=== PATIENT | female | born 1970 | race Caucasian/White ===

== ENCOUNTER 2019-07-15 05:51 | Day surgery (SDC) | payer OTHER, SELFPAY | END 2019-07-15 10:51 | disposition home or self-care (01) | PROVIDERS: Family Provider Nurse Practitioner Family; Visit Provider Podiatrist Foot & Ankle Surgery | DX: S86.011A Strain of right Achilles tendon, initial encounter (principal); X58.XXXA Exposure to other specified factors, initial encounter; I10 Essential (primary) hypertension; E66.01 Morbid (severe) obesity due to excess calories; Z68.41 Body mass index [BMI] 40.0-44.9, adult; K21.9 Gastro-esophageal reflux disease without esophagitis; M19.90 Unspecified osteoarthritis, unspecified site; M79.7 Fibromyalgia; Z82.49 Family history of ischemic heart disease and other diseases of the circulatory system; Z83.3 Family history of diabetes mellitus; F17.210 Nicotine dependence, cigarettes, uncomplicated; E04.9 Nontoxic goiter, unspecified; E55.9 Vitamin D deficiency, unspecified | CPT/HCPCS: 27654; C1713 ×4; J0690; J1100; J2001; J2250; J2405; J2704 ×2; J2795; J3010 ×2; J3490 ×2 ==

== ENCOUNTER → 2019-07-18 | Outpatient (CLI) | payer OTHER, SELFPAY | PROVIDERS: Family Provider Nurse Practitioner Family; Visit Provider Podiatrist Foot & Ankle Surgery | DX: Z98.890 Other specified postprocedural states (principal) | CPT/HCPCS: L4361 ==

== ENCOUNTER → 2019-09-12 13:59 | Outpatient (BNVA) | payer SELFPAY | PROVIDERS: Family Provider Nurse Practitioner Family; PCP Nurse Practitioner Family; Visit Provider Podiatrist Foot & Ankle Surgery | DX: Z48.89 Encounter for other specified surgical aftercare (principal); M79.671 Pain in right foot; M77.31 Calcaneal spur, right foot; S86.001A Unspecified injury of right Achilles tendon, initial encounter; X58.XXXA Exposure to other specified factors, initial encounter | CPT/HCPCS: 73610; 73630 ==

== ENCOUNTER → 2019-09-27 14:28 | Outpatient (BNVA) | payer OTHER, SELFPAY | PROVIDERS: Family Provider Nurse Practitioner Family; PCP Nurse Practitioner Family; Visit Provider Podiatrist Foot & Ankle Surgery | DX: Z48.89 Encounter for other specified surgical aftercare (principal); M79.671 Pain in right foot | CPT/HCPCS: 73650 ==

== ENCOUNTER → 2019-10-03 08:45 | Outpatient (BNVA) | payer OTHER, SELFPAY | PROVIDERS: Family Provider Nurse Practitioner Family; PCP Nurse Practitioner Family; Visit Provider Podiatrist Foot & Ankle Surgery | DX: Z48.89 Encounter for other specified surgical aftercare (principal); M79.671 Pain in right foot; Z98.890 Other specified postprocedural states; T81.31XD Disruption of external operation (surgical) wound, not elsewhere classified, subsequent encounter; L97.412 Non-pressure chronic ulcer of right heel and midfoot with fat layer exposed | CPT/HCPCS: 87070; 87075; 87077; 87205 ==

== ENCOUNTER → 2019-10-10 12:08 | Outpatient (BNVA) | payer SELFPAY | PROVIDERS: Family Provider Nurse Practitioner Family; PCP Nurse Practitioner Family; Visit Provider Podiatrist Foot & Ankle Surgery | DX: T81.31XD Disruption of external operation (surgical) wound, not elsewhere classified, subsequent encounter (principal); Y83.8 Other surgical procedures as the cause of abnormal reaction of the patient, or of later complication, without mention of misadventure at the time of the procedure | CPT/HCPCS: 80048; 85007; 85027; 85651; 86140 ==

== ENCOUNTER 2019-11-02 06:00 | Outpatient (RCR) | payer OTHER, SELFPAY | END 2019-11-17 23:59 | disposition home or self-care (01) | LOC: WPT 06:00 | PROVIDERS: Absent Provider Podiatrist Foot & Ankle Surgery; Family Provider Nurse Practitioner Family; PCP Nurse Practitioner Family; Visit Provider Podiatrist Foot & Ankle Surgery | DX: M25.571 Pain in right ankle and joints of right foot (principal); Z47.89 Encounter for other orthopedic aftercare; Z98.890 Other specified postprocedural states | CPT/HCPCS: 97110; 97140; 97161 ==

== ENCOUNTER 2019-11-18 06:00 | Outpatient (RCR) | payer OTHER, SELFPAY | END 2019-12-18 23:59 | disposition home or self-care (01) | LOC: WPT 06:00 | PROVIDERS: Absent Provider Podiatrist Foot & Ankle Surgery; PCP Nurse Practitioner Family; Visit Provider Podiatrist Foot & Ankle Surgery | DX: Z47.89 Encounter for other orthopedic aftercare (principal) | CPT/HCPCS: 97110; 97530 ==

== ENCOUNTER → 2019-12-01 11:41 | Outpatient (BNVA) | payer OTHER, SELFPAY | PROVIDERS: PCP Nurse Practitioner Family; Visit Provider Nurse Practitioner Family | DX: R53.83 Other fatigue (principal); E04.1 Nontoxic single thyroid nodule; E78.2 Mixed hyperlipidemia; E55.9 Vitamin D deficiency, unspecified; G25.81 Restless legs syndrome; Z79.899 Other long term (current) drug therapy; M54.5 Low back pain; M79.605 Pain in left leg; M25.552 Pain in left hip | CPT/HCPCS: 80061; 81001; 82306; 83036; 83540; 84439; 84443; 84481; 85025 ==

== ENCOUNTER → 2019-12-06 09:16 | Outpatient (BNVA) | payer OTHER, SELFPAY | PROVIDERS: PCP Nurse Practitioner Family; Visit Provider Nurse Practitioner Family | DX: D64.9 Anemia, unspecified (principal); E03.9 Hypothyroidism, unspecified; D51.9 Vitamin B12 deficiency anemia, unspecified; R94.4 Abnormal results of kidney function studies; R73.09 Other abnormal glucose; E78.2 Mixed hyperlipidemia; M54.5 Low back pain; M79.605 Pain in left leg | CPT/HCPCS: 36415; 82607; 83921 ==

== ENCOUNTER → 2019-12-08 08:58 | Outpatient (BNVA) | payer OTHER, SELFPAY | PROVIDERS: PCP Nurse Practitioner Family; Visit Provider Nurse Practitioner Family | DX: M54.5 Low back pain (principal); M79.605 Pain in left leg; M25.552 Pain in left hip | CPT/HCPCS: 72114; 73502 ==

== ENCOUNTER → 2020-01-02 10:00 | Outpatient (BNVA) | payer OTHER, SELFPAY | PROVIDERS: PCP Nurse Practitioner Family; Visit Provider Nurse Practitioner Family | DX: J22 Unspecified acute lower respiratory infection (principal) | CPT/HCPCS: 87635 ==

== ENCOUNTER → 2020-02-13 15:05 | Outpatient (BNVA) | payer OTHER, SELFPAY | PROVIDERS: PCP Nurse Practitioner Family; Visit Provider Nurse Practitioner Family | DX: D64.9 Anemia, unspecified (principal); J22 Unspecified acute lower respiratory infection; J40 Bronchitis, not specified as acute or chronic; J32.9 Chronic sinusitis, unspecified; R73.09 Other abnormal glucose; E55.9 Vitamin D deficiency, unspecified; D51.9 Vitamin B12 deficiency anemia, unspecified; E04.1 Nontoxic single thyroid nodule; G25.81 Restless legs syndrome | CPT/HCPCS: 80053; 82306; 82728; 83036; 84443; 85025 ==

== ENCOUNTER → 2020-02-17 13:45 | Outpatient (BNVA) | payer OTHER, SELFPAY | PROVIDERS: PCP Nurse Practitioner Family; Visit Provider Nurse Practitioner Family | DX: J22 Unspecified acute lower respiratory infection (principal) | CPT/HCPCS: 71046 ==

== ENCOUNTER 2020-02-27 07:49 | Outpatient (CLI) | payer OTHER, SELFPAY ==
--- NOTE | 2020-02-27 11:00 | US_ITS ---
WS: [id number] ULTRASOUND THYROID TECHNIQUE: Ultrasound of the thyroid. CLINICAL INFORMATION: US Nodules - hypothyroid COMPARISON: FINDINGS: Thyroid: Heterogeneous thyroid echotexture bilaterally. Right thyroid lobe: 3.5 cm x 1.8 cm x 1.5 cm 2-3 hypoechoic right-sided nodules measuring 7-10 mm unchanged. Left thyroid lobe: 3.7 cm x 1.2 cm x 1.2 cm. No visualized left-sided nodules today. Isthmus: 0.2 mm. Cervical lymphadenopathy: None. US/US thyroid [id number] IMPRESSION: 1. Two-three hypoechoic right-sided nodules measuring 7-1 mm unchanged. Recomm end 12 month follow-up. 2. No visualized left-sided nodules today
== END 2020-02-27 07:50 | disposition home or self-care (01) ==
LOC: RAD 07:52
PROVIDERS: PCP Nurse Practitioner Family; Visit Provider Nurse Practitioner Family
DX: E03.9 Hypothyroidism, unspecified (principal); E04.2 Nontoxic multinodular goiter
CPT/HCPCS: 76536

== ENCOUNTER 2020-03-14 12:52 | Outpatient (CLI) | payer OTHER, SELFPAY | END 2020-03-14 12:53 | disposition home or self-care (01) | LOC: SPT 12:53 | PROVIDERS: PCP Nurse Practitioner Family; Visit Provider Podiatrist Foot & Ankle Surgery | DX: S86.091D Other specified injury of right Achilles tendon, subsequent encounter (principal); X58.XXXD Exposure to other specified factors, subsequent encounter; M92.61 Juvenile osteochondrosis of tarsus, right ankle; M67.88 Other specified disorders of synovium and tendon, other site | CPT/HCPCS: L3030 ==

== ENCOUNTER 2020-05-16 11:32 | Outpatient (CLI) | payer OTHER, SELFPAY | END 2020-05-16 11:33 | disposition home or self-care (01) | LOC: SPT 11:33 | PROVIDERS: PCP Nurse Practitioner Family; Visit Provider Podiatrist Foot & Ankle Surgery | DX: Z46.89 Encounter for fitting and adjustment of other specified devices (principal); M92.61 Juvenile osteochondrosis of tarsus, right ankle; M67.88 Other specified disorders of synovium and tendon, other site; L97.412 Non-pressure chronic ulcer of right heel and midfoot with fat layer exposed | CPT/HCPCS: 97760; L4397 ==

== ENCOUNTER → 2020-05-31 10:55 | Outpatient (BNVA) | payer OTHER, SELFPAY | PROVIDERS: PCP Nurse Practitioner Family; Visit Provider Nurse Practitioner Family | DX: S86.912A Strain of unspecified muscle(s) and tendon(s) at lower leg level, left leg, initial encounter (principal); W19.XXXA Unspecified fall, initial encounter; Y92.009 Unspecified place in unspecified non-institutional (private) residence as the place of occurrence of the external cause; B37.2 Candidiasis of skin and nail | CPT/HCPCS: 73590 ==

== ENCOUNTER → 2020-06-27 13:01 | Outpatient (BNVA) | payer OTHER, SELFPAY | PROVIDERS: PCP Nurse Practitioner Family; Visit Provider Podiatrist Foot & Ankle Surgery | DX: M79.672 Pain in left foot (principal) | CPT/HCPCS: 73620; 73630 ==

== ENCOUNTER → 2020-08-16 09:54 | Outpatient (BNVA) | payer OTHER, SELFPAY | PROVIDERS: PCP Nurse Practitioner Family; Visit Provider Internal Medicine | DX: L40.4 Guttate psoriasis (principal); Z11.1 Encounter for screening for respiratory tuberculosis; Z11.59 Encounter for screening for other viral diseases; Z79.899 Other long term (current) drug therapy; M51.36 Other intervertebral disc degeneration, lumbar region; F17.210 Nicotine dependence, cigarettes, uncomplicated | CPT/HCPCS: 99204 ==

== ENCOUNTER 2020-08-16 11:12 | Outpatient (CLI) | payer OTHER, SELFPAY ==
--- NOTE | 2020-08-16 11:22 | XR_ITS ---
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 Findings: No fractures, soft tissue swelling, or unusual calcifications are noted. The hand shows normal bony alignment. There is no irregularity of the bony architecture. XR/XR hand LT 2V [id number] IMPRESSION: Normal left hand.
--- NOTE | 2020-08-16 11:22 | XR_ITS ---
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 The hand shows normal bony alignment. There is no irregularity of the bony architecture. XR/XR hand RT 2V [id number] IMPRESSION: Normal right hand.
--- NOTE | 2020-08-16 11:22 | XR_ITS ---
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 Interbody fusion from L2 to L5 which appears to be in satisfactory alignment. Posterior rods and pedi fabián screws are intact. Spacers at the L2-3 and L4-5 disc levels. No sign of the hardware failure or m alposition. No acute fracture. Minimal levoscoliosis of the lumbar spine. Facet DJD at all levels. Mi nimal spondylosis. Mild degenerative anterolisthesis of L4 on L5 unchanged. XR/XR lumbar spine 2-3V* [id number] IMPRESSION: 1. Intact interbody fusion in satisfactory alignment. 2. Degenerative changes as detailed above. No acute bony injury.
--- NOTE | 2020-08-16 11:22 | XR_ITS ---
WS: [id number] Exam: XR sacroiliac jts m 3V [id number] Date/Time of Exam: 08/16/2020 11:22 AM Reason For Exam: L40.9 - Psoriasis, unspecified No fracture or dislocation. Moderate DJD of the SI joints. The SI joints are open. Hardware noted in the lower lumbar spine. XR/XR sacroiliac jts m 3V [id number] IMPRESSION: 1. Moderate DJD of the SI joints. No fracture or other significant finding.
[2020-08-16 13:08] LABS: Basophils % 0.4 %; Eosinophils # 0.3 10^3/uL (0.0-0.8); Eosinophils % 3.5 %; Hematocrit 42.6 % (37.0-47.0); Hemoglobin 13.4 g/dL (11.5-15.3); Lymphocytes # 1.9 10^3/uL (0.8-4.8); Lymphocytes % 20.9 %; Mean Corpuscular HGB Conc 31.5 g/dL (30.0-36.0); Mean Corpuscular Hemoglobin 32.2 pg (28.0-34.0); Mean Corpuscular Volume 102.4 fL (81-99); Mean Platelet Volume 11.4 fL (7.4-10.4); Monocytes # 0.5 10^3/uL (0.2-0.9); Monocytes % 5.5 %; Neutrophils # 6.37 10^3/uL (1.8-7.7); Neutrophils % 69.5 %; Nucleated Red Blood Cells % 0 %; Platelet Count 210 10^3/cmm (130-400); Red Blood Count 4.16 10^6/uL (4.1-5.3); Red Cell Distribution Width 13.7 % (12.1-15.1); White Blood Count 9.2 10^3/uL (4.0-10.0)
[2020-08-16 13:22] LABS: Alanine Aminotransferase 29 U/L (0-33); Albumin Level 3.9 g/dL (3.5-5.2); Alkaline Phosphatase 65 IU/L (35-105); Anion Gap 12.1 (5-19); Aspartate Amino Transferase 26 U/L (0-32); Blood Urea Nitrogen 13 mg/dL (6-20); Calcium 9.8 mg/dL (8.5-10.5); Carbon Dioxide 31 mmol/L (22-29); Chloride 103 mmol/L (98-107); Globulin 3.5 g/dL (1.3-4.6); Glomerular Filtration Rate 76.2 mL/min (90-130); Glucose 82 mg/dL (65-115); Osmolality Calculated 293 mOsm/kg (285-295); Potassium 4.1 mmol/L (3.5-5.1); Sodium 142 mmol/L (136-145); Total Bilirubin 0.3 mg/dL (0.15-1.2); Total Protein 7.4 g/dL (6.6-8.7)
[2020-08-16 13:53] LABS: Erythrocyte Sedimentation Rate 45 mm/hr (0-15)
[2020-08-16 13:59] LABS: Hepatitis B Core AB, Total Non-Reactive (Nonreactive); Hepatitis B Surface Antigen Non-Reactive (Nonreactive); Hepatitis C Virus Antibody Non-Reactive (Nonreactive)
[2020-08-16 14:27] LABS: Vitamin B12 445 pg/mL (232-1245)
[2020-08-18 13:59] LABS: Quantiferon Mitogen >10.00 IU/mL; Quantiferon Nil 0.04 IU/mL; Quantiferon TB Gold NEGATIVE (NEGATIVE)
[2020-08-19 23:23] LABS: Tissue Transglutaminase IgA Ab <1 U/mL; Tissue transglutaminase Ab.IgG 1 U/mL
[2020-08-20 16:39] LABS: Gliadin Ab.IgA 4 U (<20); Gliadin Ab.IgG 2 U (<20)
[2020-08-20 22:43] LABS: Immunoglobulin A 310 mg/dL (47-310)
[2020-08-23 21:43] LABS: HLA-B27 NEGATIVE (NEGATIVE)
== END 2020-08-16 11:13 | disposition home or self-care (01) ==
PROVIDERS: PCP Nurse Practitioner Family; Visit Provider Internal Medicine
DX: L40.4 Guttate psoriasis (principal); Z51.81 Encounter for therapeutic drug level monitoring; D86.9 Sarcoidosis, unspecified; M32.9 Systemic lupus erythematosus, unspecified; R53.83 Other fatigue; M46.1 Sacroiliitis, not elsewhere classified
CPT/HCPCS: 72100; 72202; 73120; 80053; 82607; 82784; 83516; 85025; 85651; 86480; 86704; 86803; 86812; 87340

== ENCOUNTER → 2020-08-27 09:50 | Outpatient (BNVA) | payer OTHER, SELFPAY | PROVIDERS: PCP Nurse Practitioner Family; Visit Provider Internal Medicine | DX: L40.4 Guttate psoriasis (principal); Z79.899 Other long term (current) drug therapy; F17.210 Nicotine dependence, cigarettes, uncomplicated; D51.9 Vitamin B12 deficiency anemia, unspecified; R73.09 Other abnormal glucose; E78.2 Mixed hyperlipidemia; E03.9 Hypothyroidism, unspecified; E55.9 Vitamin D deficiency, unspecified; R53.83 Other fatigue; G47.33 Obstructive sleep apnea (adult) (pediatric); G47.10 Hypersomnia, unspecified; E66.01 Morbid (severe) obesity due to excess calories; Z68.42 Body mass index [BMI] 45.0-49.9, adult; I10 Essential (primary) hypertension | CPT/HCPCS: 80061; 81003; 82306; 83036; 83921; 84439; 84443; 84481; 87077; 87086; 87184; 87806; 99214 ==

== ENCOUNTER 2020-09-11 20:00 | Outpatient (CLI) | payer OTHER, SELFPAY | END 2020-09-11 20:01 | disposition home or self-care (01) | LOC: SLEEP 09-12 08:41 | PROVIDERS: PCP Nurse Practitioner Family; Visit Provider Nurse Practitioner Family | DX: G47.33 Obstructive sleep apnea (adult) (pediatric) (principal); G47.10 Hypersomnia, unspecified | CPT/HCPCS: 95810 ==

== ENCOUNTER 2020-09-12 07:51 | Outpatient (CLI) | payer OTHER, SELFPAY ==
--- NOTE | 2020-09-12 08:05 | MR_ITS ---
WS: [id number] MRI LEFT FOOT without CONTRAST. COMPARISON: 06/27/2020 radiographs. Multiplanar, multisequence imaging is performed without contrast. 5 mm calcaneal spur. No erosion at the base of the spur. There is increased T2 signal just superficia l to the medial band of the plantar fascial. Increased edema and T2 signal is at the origins of the a bductor hallucis muscle and the flexor digitorum brevis. Abnormal signal extends over a length of 11 mm x 6 mm. Majority of the abnormal signal appears most significant within the flexor digitorum brevi s. There is no thickening or signal abnormality within the plantar fascia. There is increase fluid an d slight increased signal along the superficial and deep surfaces. Achilles tendon is normal. No joint effusion. No marrow edema. MR/MR foot LT wo con* [id number] IMPRESSION: 1. Suspicious for partial tears involving the origins of the abductor hallucis and flexor digitorum brevis muscles. Most significantly involving the FDB. 2. Minimal inflammatory changes on the superficial and deep surfaces of the pl shira fascial but no tear.
== END 2020-09-12 07:52 | disposition home or self-care (01) ==
LOC: RADWPI 07:53
PROVIDERS: PCP Nurse Practitioner Family; Visit Provider Podiatrist Foot & Ankle Surgery
DX: M79.672 Pain in left foot (principal)
CPT/HCPCS: 73718

== ENCOUNTER → 2020-10-22 10:07 | Outpatient (BNVA) | payer OTHER, SELFPAY | PROVIDERS: PCP Nurse Practitioner Family; Visit Provider Podiatrist Foot & Ankle Surgery | DX: Z20.822 Contact with and (suspected) exposure to COVID-19 (principal); Z01.812 Encounter for preprocedural laboratory examination; M24.572 Contracture, left ankle; M72.2 Plantar fascial fibromatosis | CPT/HCPCS: 87635 ==

== ENCOUNTER 2020-10-26 06:36 | Day surgery (SDC) | payer OTHER, SELFPAY ==
[2020-10-25 16:56] VITALS: BMI 50.1
[2020-10-26] VITALS (7 sets, daily range): BP systolic 117–151; BP diastolic 79–103; PULSE 67–85; RESP 17–20; TEMP 36.5–37; O2SAT 94–97
[2020-10-26] MEDS: sodium chloride 0.9% 1,000 ML 30 ML IV (07:07)
--- NOTE | 2020-10-26 07:25 | ANES.PREANE2 ---
Pre-Anesthetic Assessment Pre-Anesthetic Assessment: Height/Weight: Height 1.73 m Weight 149.685 kg Temp Pulse Resp BP Pulse Ox 97.7 F 72 18 151/103 97 10/26/20 06:47 10/26/20 06:47 10/26/20 06:47 10/26/20 06:47 10/26/20 06:47 Preop Diagnosis: left ankle equinus and plantar fasciitis Proposed Procedure: Operation Date: 10/26/20 08:00 Proposed Procedures p Left Gastrocnemius Recession/Left Plantar Fascia Injection 50855 M72.2(Not Applicable) - Larry Caro DPM Familial anesthetic complications: None Was Beta Paula taken within 24 hours: N/A Was Clonidine taken within 24 hours: N/A Last intake: Intake Last Liquid Date 10/25/20 Last Liquid Time 22:00 Last Solid Date 10/25/20 Last Solid Time 22:00 Social: Social History: Tobacco and No alcohol Exam: Pre-Anes Outpt Exam: alert, oriented x 3, clear to auscultation bilaterally and regular rate & rhythm Airway: Cervical ROM: WNL MP: 4 Dentition: Other (no teeth) Pulmonary: Pulmonary: Sleep apnea CV/HEM: CV/HEM: HTN Metabolic: Metabolic: Hyperlipidemia, Morbid obesity and Thyroid Anesthetic Plan: ASA status: 3 Anesthesia: MAC Risk of > 500 ml blood loss (7ml/kg in children): No Meds/Allergies Current Medications: Current Medications Generic Name Dose Route Start Last Admin Trade Name Freq PRN Reason Stop Dose Admin Sodium Chloride 1,000 mls @ 30 ml s/hr 10/26/20 06:45 10/26/20 07:07 Sodium Chloride 0.9% IV 10/27/20 06:44 30 mls/hr .Q24H LUCAS Administration PFSH Anesthesia PFSH: Medical History Achilles tendinosis of right lower extremity Anemia Bronchitis with acute wheezing DDD (degenerative disc disease), lumbar Decreased GFR Depression with anxiety Edema Essential hypertension Fatigue Fibromyalgia Goiter Francia's deformity of right heel Hypersomnia Hypertension, benign Hypothyroidism Left hip pain Lower respiratory infection Lumbar pain with radiation down left leg Medication management Mixed hyperlipidemia Morbid obesity Morbid obesity with BMI of 45.0-49.9, adult Morbid obesity with BMI of 50.0-59.9, adult Obesity Pseudofolliculitis barbae Restless leg Sleep apnea Thyroid nodule Urinary tract infection Vitamin B12 deficiency (non anemic) Vitamin D deficiency Yeast dermatitis Family History Denies family history of Diabetes CAD (coronary artery disease) Clotting disorder Dementia Hyperlipidemia Psychiatric illness Chronic kidney disease (CKD) Suicide Anesthesia complication Bleeding disorder Family history of premature coronary artery disease Lung disease Cancer Hypertension Stroke Social History Smoking and tobacco status: current every day smoker Alcohol intake: never Current occupational status: employed Current occupation: Nurse Data Anesthesia Cardiac Studies: No Data to Display
--- NOTE | 2020-10-26 07:41 | W.PM.OPSUD ---
Surgery/Procedure H&P Update DATE OF PROCEDURE: October 26, 2020 DATE H&P PERFORMED: 10/15/20 H&P UPDATE INFORMATION: I have reviewed H&P completed within last 30 days, I have examined patient prior to procedure, No changes to prior documentation and H&P is in [facility] EMR on date indicated PREOP DIAGNOSIS: left ankle equinus and plantar fasciitis PLANNED PROCEDURE: Operation Date: 10/26/20 08:00 Proposed Procedures p Left Gastrocnemius Recession/Left Plantar Fascia Injection 93651 M72.2(Not Applicable) - Larry Caro DPM
[2020-10-26] MEDS: triamcinolone 40 mg/mL SDV IM (08:25)
[2020-10-26] MEDS: dexamethasone 4 mg/mL INJ INJECTION (08:25)
[2020-10-26] MEDS: lidocaine 1% INJ 20 mL IM (08:32)
--- NOTE | 2020-10-26 08:44 | P.OP_ITS ---
Operative Report Date of procedure: October 26, 2020 Pre-op Diagnosis: left ankle equinus and plantar fasciitis Post-op diagnosis: same Procedure Done: Left gastrocnemius recession and cortisone injection left plantar fascia CPT 01179, 86149 Implants: 3-0 Vicryl 4-0 nylon Surgeon: Larry Caro D.P.M. Distillery Worker General: Sadie Anesthesia: MAC Estimated blood loss: Less than 5 mL Tourniquet time: See intraoperative documentation Condition: stable Disposition: PACU Brief History: Recalcitrant plantar fasciitis and gastrocnemius equinus, failed formal physical therapy, at home physical therapy, local cortisone injections, supportive shoes and custom functional orthotics oral and local anti- inflammatories. Recommend a gastrocnemius recession and plantar fascial injection under anesthesia to the left lower extremity. Risks include pain, bleeding, numbness, infection, damage to adjacent soft tissue structures, permanent numbness, neuropraxia, hypersensitivity, painful scar, chronic swelling, failure to alleviate pain and need for further surgical intervention. Patient is agreeable wishes to proceed. Patient interviewed preoperatively and I initialed her left lower extremity. Informed consent signed by myself and patient. All questions answered to her satisfaction. Procedure: Under mild sedation the patient was brought to the operating room and placed on the operating table in supine position. Timeout performed and anest hesia was then administered by the anesthesia service. Local anesthesia injected by myself in a proximal field block at the myotendinous juncture of the left Achilles tendon and gastroc aponeurosis. Well-padded pneumatic tourniquet applied to the left thigh. Left lower extremity was scrubbed, prepped and draped utilizing normal aseptic technique. Attention was directed to the myotendinous juncture and palpated the medial flare of the gastrocnemius muscle of the left leg medially. Linear incision was made at this level with a #15 blade. All bleeders were ligated and cauterized as necessary. Blunt dissection carried down to crural fascia with care taken to retract and preserve neurovascular and tendinous structures. Crural fascia incision was made in the interval between the posterior aspect of the gastrocnemius muscle and anterior aspect of the psoas muscle was defined utilizing blunt dissection. This was then visualized utilizing self-retaining distractor. Metzenbaum scissors utilized to transect the gastroc aponeurosis from medial to lateral under direct visualization. Incision site was flushed with saline solution. Improved ankle joint dorsiflexion appreciated. Crural fascia and subcutaneous tissue closed utilizing Vicryl and skin closed utilizing nylon. Incision site dressed with Adaptic, sterile 4 x 4, Kerlix and Earnest wrap. Cam boot was applied. Tourniquet was deflated and a prompt hyperemic response was noted to the distal digits of the left foot. Cortisone injection carried out left plantar fascia medial approach consisting of a total of 3 mL 1-1-1 mixture 0.5% Marcaine plain, dexamethasone and Kenalog. Patient tolerated procedure and anesthesia well and was transferred to the PACU with vital signs stable and vascular status intact. Following a period of postoperative monitoring she will be discharged home may be weightbearing as tolerated with a cam boot.
[2020-10-26] MEDS: HYDROcodone-acetaminophen 10-325 mg Tablet 1 TAB PO (09:31)
--- NOTE | 2020-10-26 16:00 | ANE.PACU2 ---
Inpatient post-anesthesia follow up: Airway intact: Yes Vital signs: Temperature 98.6 F Pulse Rate 67 Respiratory Rate 18 Blood Pressure 120/85 Pulse Oximetry 94 Oxygen Delivery Me thod Room Air Oxygen Flow Rate 6 Fraction of Inspir ed Oxygen Hydration adequate: Yes Nausea and vomiting: No Pain level: 1 Mental status: Baseline
== END 2020-10-26 10:05 | disposition home or self-care (01) ==
PROVIDERS: PCP Nurse Practitioner Family; Visit Provider Podiatrist Foot & Ankle Surgery
PROC: (CPT 27687; principal; 2020-10-26 07:50)
DX: M72.2 Plantar fascial fibromatosis (principal); G47.33 Obstructive sleep apnea (adult) (pediatric); I10 Essential (primary) hypertension; E66.01 Morbid (severe) obesity due to excess calories; Z68.43 Body mass index [BMI] 50.0-59.9, adult; F32.9 Major depressive disorder, single episode, unspecified; F41.9 Anxiety disorder, unspecified; M79.7 Fibromyalgia; E03.9 Hypothyroidism, unspecified; E78.2 Mixed hyperlipidemia
CPT/HCPCS: 20550; 27687; J0690; J1100; J1885; J2250; J2704; J3010; J3301; J3490; J7030

== ENCOUNTER → 2020-11-07 10:34 | Outpatient (BNVA) | payer OTHER, SELFPAY | PROVIDERS: PCP Nurse Practitioner Family; Visit Provider Nurse Practitioner Family | DX: Z12.31 Encounter for screening mammogram for malignant neoplasm of breast (principal); R60.9 Edema, unspecified; D22.9 Melanocytic nevi, unspecified; E03.9 Hypothyroidism, unspecified | CPT/HCPCS: 84439; 84443 ==

== ENCOUNTER 2020-11-22 11:27 | Outpatient (CLI) | payer OTHER, SELFPAY ==
--- NOTE | 2020-11-22 11:30 | MM_ITS ---
WS: [id number] BILATERAL SCREENING DIGITAL MAMMOGRAM WITH CAD HISTORY: Z12.31 - Encounter for screening mammogram for malignant neoplasm of breast COMPARISON: 09/28/2018 and 04/01/2017 Bilateral CC and MLO views submitted. Computer aided detection analyzed. Breast composition: There are scattered areas of fibroglandular density. No suspicious masses, microc alcifications or architectural distortion. MM/[place] [id number] IMPRESSION: BI-RADS: 1-Negative FOLLOW UP: 1 Year Follow-up
== END 2020-11-22 11:28 | disposition home or self-care (01) ==
LOC: RADSHAW 11:28
PROVIDERS: PCP Nurse Practitioner Family; Visit Provider Nurse Practitioner Family
DX: Z12.31 Encounter for screening mammogram for malignant neoplasm of breast (principal)
CPT/HCPCS: 77067

== ENCOUNTER 2020-11-26 20:00 | Outpatient (CLI) | payer OTHER, SELFPAY | END 2020-11-26 20:01 | disposition home or self-care (01) | LOC: SLEEP 11-27 08:57 | PROVIDERS: PCP Nurse Practitioner Family; Visit Provider Nurse Practitioner Family | DX: G47.33 Obstructive sleep apnea (adult) (pediatric) (principal); G47.10 Hypersomnia, unspecified | CPT/HCPCS: 95811 ==

== ENCOUNTER 2020-11-28 09:01 | Outpatient (CLI) | payer OTHER, SELFPAY ==
--- NOTE | 2020-11-28 09:10 | FL_ITS ---
WS: [id number] UPPER GI WITH AIR TECHNICAL: Double contrast upper GI with thin and thick barium FLUOROSCOPY TIME: 2.7 minutes CLINICAL INFORMATION: K21.9 - Gastro-esophageal reflux disease without esophagitis COMPARISON: None. FINDINGS: Swallowing: No evidence of aspiration or penetration. Esophagus: Mild esophageal dysmotility with evidence of reflux esophagitis distal esophagus. No stric ture or narrowing. Gastroesophageal reflux: Mild reflux on the supine imaging. Stomach: Double contrast stomach is normal. Duodenum: Normal. Other findings: Cholecystectomy postoperative changes pedicle screw fixation lumbar spine L2-L5. FL/FL upper GI w air* [id number] IMPRESSION: 1. Mild esophageal dysmotility. No stricture or narrowing. 2. Moderate reflux is visualized on the supine imaging to the midesophagus. No significant hiatal hernia. 3. Mild reflux esophagitis and gastritis. 4. Otherwise normal double contrast stomach and duodenum was normal gastric em ptying.
== END 2020-11-28 09:02 | disposition home or self-care (01) ==
PROVIDERS: PCP Nurse Practitioner Family; Visit Provider Surgery
DX: K21.9 Gastro-esophageal reflux disease without esophagitis (principal); K20.90 Esophagitis, unspecified without bleeding; K29.70 Gastritis, unspecified, without bleeding
CPT/HCPCS: 74246; 80053; 85025; 85651; 86140

== ENCOUNTER → 2020-12-06 09:44 | Outpatient (BNVA) | payer OTHER, SELFPAY | PROVIDERS: PCP Nurse Practitioner Family; Visit Provider Internal Medicine | DX: L40.50 Arthropathic psoriasis, unspecified (principal); Z79.899 Other long term (current) drug therapy; F17.210 Nicotine dependence, cigarettes, uncomplicated | CPT/HCPCS: 99214 ==

== ENCOUNTER → 2020-12-20 08:28 | Outpatient (BNVA) | payer OTHER, SELFPAY | PROVIDERS: PCP Nurse Practitioner Family; Visit Provider Nurse Practitioner Family | DX: M79.673 Pain in unspecified foot (principal) | CPT/HCPCS: 73630 ==

== ENCOUNTER → 2021-01-28 08:27 | Outpatient (BNVA) | payer OTHER, SELFPAY | PROVIDERS: PCP Nurse Practitioner Family; Visit Provider Podiatrist Foot & Ankle Surgery | DX: M89.8X9 Other specified disorders of bone, unspecified site (principal); M72.2 Plantar fascial fibromatosis; M79.672 Pain in left foot | CPT/HCPCS: 73630 ==

== ENCOUNTER → 2021-02-08 15:15 | Outpatient (BNVA) | payer OTHER, SELFPAY | PROVIDERS: PCP Nurse Practitioner Family; Visit Provider Surgery | DX: Z01.818 Encounter for other preprocedural examination (principal); Z20.822 Contact with and (suspected) exposure to COVID-19 | CPT/HCPCS: 87635 ==

== ENCOUNTER 2021-02-14 07:39 | Day surgery (SDC) | payer OTHER, SELFPAY ==
[2021-02-14 08:10] VITALS: BP 156/96; PULSE 73; RESP 18; TEMP 36.1; O2SAT 97
[2021-02-14 08:12] VITALS: BMI 49.4
--- NOTE | 2021-02-14 08:19 | W.PM.OPSFHP ---
Same Day Surgery H&P Indication for Procedure/HPI DATE OF PROCEDURE: February 14, 2021 CHIEF COMPLAINT/INDICATIONFOR SURGICAL PROCEDURE: Morbid obesity associated with acid reflux, screening colonoscopy PREOP DIAGNOSIS: Acid reflux and screening colonoscopy PLANNED PROCEDRUE: Operation Date: 02/14/21 09:00 Proposed Procedures p EGD 56461 19451 z12.11 z21.9(Not Applicable) - Shakeel Larios MD s Colonoscopy(Not Applicable) - Shakeel Larios MD Patient comes today for follow-up history of continues to show interest in surgery. Unfortunately she did not lose much weight since her last encounter. With a current weight of 330 pounds and a BMI of 50. Patient reports to me according to her knowledge with her insurance that they will not cover it with surgery. Patient continues to struggle with her morbid obesity status with associated multiple medical comorbidities. As she has been trying to lose weight without obvious success. Patient did undergo an upper GI study per my request that did show 1. Mild esophageal dysmotility. No stricture or narrowing. 2. Moderate reflux is visualized on the supine imaging to the midesophagus. No significant hiatal hernia. 3. Mild reflux esophagitis and gastritis. 4. Otherwise normal double contrast stomach and duodenum was normal gastric emptying. Interim history 02/14/2021 Patient comes today for diagnostic EGD and screening colonoscopy ROS All systems have been reviewed negative except as per the above or per problem list Medications/Allergies* Home Medications Medication Instructions Recorded Confirmed Type amitriptyline 50 mg PO BEDTIME 02/12/21 02/14/21 History citalopram 40 mg PO DAILY 02/12/21 02/14/21 History levothyroxine [Euthyrox] 175 mcg PO DAILY 02/12/21 02/14/21 History losartan 50 mg PO DAILY 02/12/21 02/14/21 History Allergies/Adverse Reactions Allergy/AdvReac Type Severity Reaction Status Date / Time bupropion [From Wellbutrin] Allergy Unknown unknown Verified 02/14/21 08:20 doxycycline Allergy Unknown unknown Verified 02/14/21 08:20 gabapentin Allergy Unknown unknown Verified 02/14/21 08:20 influenza virus vacc Allergy Unknown unknown Verified 02/14/21 08:20 trivalent, split [From Fluzone] meperidine [From Demerol] Allergy Unknown unknown Verified 02/14/21 08:20 morphine Allergy Unknown unknown Verified 02/14/21 08:20 adhesive tape Allergy ALGY-Rash Verified 02/14/21 08:20 Pertinent History/Comorbid Conditions* Medical History (Updated 01/28/21 @ 09:17 by Larry Caro DPM) Achilles tendinosis of right lower extremity Anemia Breast cancer screening by mammogram Bronchitis with acute wheezing DDD (degenerative disc disease), lumbar Decreased GFR Depression with anxiety Edema Essential hypertension Fatigue Fibromyalgia Goiter Francia's deformity of right heel Hypersomnia Hypertension, benign Hypothyroidism Left hip pain Lower respiratory infection Lumbar pain with radiation down left leg Medication management Mixed hyperlipidemia Morbid obesity Morbid obesity with BMI of 45.0-49.9, adult Morbid obesity with BMI of 50.0-59.9, adult Obesity Pseudofolliculitis barbae Restless leg Skin mole Sleep apnea Thyroid nodule Urinary tract infection Vitamin B12 deficiency (non anemic) Vitamin D deficiency Yeast dermatitis Family History (Updated 08/17/19 @ 14:00 by Dominique Padilla LPN) Denies family history of Diabetes CAD (coronary artery disease) Clotting disorder Dementia Hyperlipidemia Psychiatric illness Chronic kidney disease (CKD) Suicide Anesthesia complication Bleeding disorder Family history of premature coronary artery disease Lung disease Cancer Hypertension Stroke Social History Smoking and tobacco status: current every day smoker Alcohol intake: never Current occupational status: employed Current occupation: Nurse Pertinent Exam Findings alert, oriented x 3, clear to auscultation bilaterally, regular rate & rhythm and procedure specific exam findings (Abdominal examination nontender nondistended soft) Recommendations Surgery/Procedure today (EGD and colonoscopy) Other Plans: Plan of care; After thorough history and physical examination and reviewing the chart, plan to perform a diagnostic esophagogastroduodenoscopy and screening colonoscopy with possible biopsy and possible polypectomy. I discussed with the patient in detail the risks,benefits,alternatives and indications.The risk of aspiration, bleeding, soft tissue injury, perforation of the stomach/esophagus/colon and other potential concomitant complications were explained to the patient in details also the potential need for Thoracotomy and or Laproscoy/Laparotomy to repair any related complications including but not limited to colectomy and or Closotomy. The patient understood this well and did agree to proceed. Rationale was carefully and clearly discussed with the patient.Appropriate informed consent have been reviewed and signed Verbal and written Instructions were given to the patient for colonoscopy prep Coding Level of Care Code Acute Senior Investment Manager for [facility] Fwd
--- NOTE | 2021-02-14 08:31 | ANES.PREANE2 ---
Pre-Anesthetic Assessment Pre-Anesthetic Assessment: Height/Weight: Height 1.73 m Weight 147.418 kg Temp Pulse Resp BP Pulse Ox 97 F L 73 18 156/96 97 02/14/21 08:10 02/14/21 08:10 02/14/21 08:10 02/14/21 08:10 02/14/21 08:10 Preop Diagnosis: Acid reflux and screening colonoscopy Proposed Procedure: Operation Date: 02/14/21 09:00 Proposed Procedures p EGD 64583 60054 z12.11 z21.9(Not Applicable) - Shakeel Larios MD s Colonoscopy(Not Applicable) - Shakeel Larios MD Was Beta Paula taken within 24 hours: N/A Was Clonidine taken within 24 hours: N/A Last intake: Intake Last Liquid Date 02/13/21 Last Liquid Time 21:00 Last Solid Date 02/12/21 Last Solid Time 18:00 Social: Social History: No alcohol and No tobacco Exam: Pre-Anes Outpt Exam: alert, oriented x 3, clear to auscultation bilaterally and regular rate & rhythm Airway: Submandibular: WNL Cervical ROM: WNL MP: 2 Dentition: False Pulmonary: Pulmonary: Sleep apnea CV/HEM: CV/HEM: Anemia and HTN Metabolic: Metabolic: Morbid obesity and Thyroid Neuropsych: Neuropsych: Anxiety Anesthetic Plan: ASA status: 3 Anesthesia: MAC Risk of > 500 ml blood loss (7ml/kg in children): No PFSH Anesthesia PFSH: Medical History Achilles tendinosis of right lower extremity Anemia Breast cancer screening by mammogram Bronchitis with acute wheezing DDD (degenerative disc disease), lumbar Decreased GFR Depression with anxiety Edema Essential hypertension Fatigue Fibromyalgia Goiter Francia's deformity of right heel Hypersomnia Hypertension, benign Hypothyroidism Left hip pain Lower respiratory infection Lumbar pain with radiation down left leg Medication management Mixed hyperlipidemia Morbid obesity Morbid obesity with BMI of 45.0-49.9, adult Morbid obesity with BMI of 50.0-59.9, adult Obesity Pseudofolliculitis barbae Restless leg Skin mole Sleep apnea Thyroid nodule Urinary tract infection Vitamin B12 deficiency (non anemic) Vitamin D deficiency Yeast dermatitis Family History Denies family history of Diabetes CAD (coronary artery disease) Clotting disorder Dementia Hyperlipidemia Psychiatric illness Chronic kidney disease (CKD) Suicide Anesthesia complication Bleeding disorder Family history of premature coronary artery disease Lung disease Cancer Hypertension Stroke Social History Smoking and tobacco status: current every day smoker Alcohol intake: never Current occupational status: employed Current occupation: Nurse Data Anesthesia Cardiac Studies: No Data to Display
[2021-02-14] MEDS: sodium chloride 0.9% 1,000 ML 30 ML IV (08:32)
[2021-02-14 09:11] VITALS: BP 151/88; PULSE 64; RESP 18; TEMP 36.8; O2SAT 97
[2021-02-14 09:31] VITALS: BP 146/94; PULSE 63; RESP 18; TEMP 36.7; O2SAT 96
--- NOTE | 2021-02-14 14:57 | ANE.PACU2 ---
Inpatient post-anesthesia follow up: Airway intact: Yes Vital signs: Temperature 98.1 F Pulse Rate 63 Respiratory Rate 18 Blood Pressure 146/94 Pulse Oximetry 96 Oxygen Delivery Me thod Room Air Oxygen Flow Rate Fraction of Inspir ed Oxygen Hydration adequate: Yes Nausea and vomiting: No Pain level: 1 Mental status: Baseline
[2021-02-15 06:02] LABS: H. Pylori / CLO Test Negative
== END 2021-02-14 10:01 | disposition home or self-care (01) ==
PROVIDERS: PCP Nurse Practitioner Family; Visit Provider Surgery
PROC: 0DJ08ZZ Inspection of Upper Intestinal Tract, Via Natural or Artificial Opening Endoscopic (ICD-10-PCS; CPT 43235; principal; 2021-02-14 09:00)
PROC: 0DJD8ZZ Inspection of Lower Intestinal Tract, Via Natural or Artificial Opening Endoscopic (ICD-10-PCS; CPT 45330; 2021-02-14 09:00)
DX: Z12.11 Encounter for screening for malignant neoplasm of colon (principal); K21.9 Gastro-esophageal reflux disease without esophagitis; D12.8 Benign neoplasm of rectum; K20.90 Esophagitis, unspecified without bleeding; K29.70 Gastritis, unspecified, without bleeding; I10 Essential (primary) hypertension; M19.90 Unspecified osteoarthritis, unspecified site; M79.7 Fibromyalgia; E03.9 Hypothyroidism, unspecified; E78.2 Mixed hyperlipidemia; E66.01 Morbid (severe) obesity due to excess calories; Z68.42 Body mass index [BMI] 45.0-49.9, adult; F17.210 Nicotine dependence, cigarettes, uncomplicated
CPT/HCPCS: 43239; 45331; 87077; 88305; 96360; J2704; J3010; J7030

== ENCOUNTER → 2021-02-26 10:30 | Outpatient (BNVA) | payer OTHER, SELFPAY | PROVIDERS: PCP Nurse Practitioner Family; Visit Provider Internal Medicine | DX: L40.50 Arthropathic psoriasis, unspecified (principal) | CPT/HCPCS: 80053; 85025 ==

== ENCOUNTER → 2021-04-04 09:45 | Outpatient (BNVA) | payer OTHER, SELFPAY | PROVIDERS: PCP Nurse Practitioner Family; Visit Provider Internal Medicine | DX: L40.4 Guttate psoriasis (principal); L40.50 Arthropathic psoriasis, unspecified; M51.36 Other intervertebral disc degeneration, lumbar region; R74.01 Elevation of levels of liver transaminase levels; M72.2 Plantar fascial fibromatosis | CPT/HCPCS: 99213; 99214 ==

== ENCOUNTER → 2021-04-08 13:10 | Outpatient (BNVA) | payer OTHER, SELFPAY | PROVIDERS: PCP Nurse Practitioner Family; Visit Provider Podiatrist Foot & Ankle Surgery | DX: Z20.822 Contact with and (suspected) exposure to COVID-19 (principal); Z41.9 Encounter for procedure for purposes other than remedying health state, unspecified | CPT/HCPCS: 87635 ==

== ENCOUNTER 2021-04-12 06:41 | Day surgery (SDC) | payer OTHER, SELFPAY ==
[2021-04-11 14:47] VITALS: BMI 50.1
[2021-04-12 06:51] VITALS: BP 159/84; PULSE 67; RESP 18; TEMP 36.4; O2SAT 96
--- NOTE | 2021-04-12 07:05 | ANES.PREANE2 ---
Pre-Anesthetic Assessment Pre-Anesthetic Assessment: Height/Weight: Height 1.73 m Weight 149.685 kg Temp Pulse Resp BP Pulse Ox 97.5 F L 67 18 159/84 96 04/12/21 06:51 04/12/21 06:51 04/12/21 06:51 04/12/21 06:51 04/12/21 06:51 Preop Diagnosis: Recalcitrant plantar fasciitis, left foot. Proposed Procedure: Operation Date: 04/12/21 08:10 Proposed Procedures p Left plantar fascial release 69184 M72.2 M79.672(Left) - Larry Caro, BARAKM Was Beta Paula taken within 24 hours: N/A Was Clonidine taken within 24 hours: N/A Last intake: Intake Last Liquid Date 04/11/21 Last Liquid Time 04:00 Last Solid Date 04/11/21 Last Solid Time 20:00 Social: Social History: Tobacco and No alcohol Exam: Pre-Anes Outpt Exam: alert, oriented x 3 and regular rate & rhythm Airway: Submandibular: WNL Cervical ROM: WNL MP: 2 Dentition: False Pulmonary: Pulmonary: COPD and Sleep apnea CV/HEM: CV/HEM: Anemia and HTN GI: GI: GERD Metabolic: Metabolic: Morbid obesity Musc/skel: Musc/skel: Lower Back Pain Anesthetic Plan: ASA status: 3 Anesthesia: General Risk of > 500 ml blood loss (7ml/kg in children): No PFSH Anesthesia PFSH: Medical History Achilles tendinosis of right lower extremity Anemia Breast cancer screening by mammogram Bronchitis with acute wheezing Colon polyp DDD (degenerative disc disease), lumbar Decreased GFR Depression with anxiety Edema Essential hypertension Fatigue Fibromyalgia Goiter Francia's deformity of right heel Hypersomnia Hypertension, benign Hypothyroidism Left hip pain Lower respiratory infection Lumbar pain with radiation down left leg Medication management Mixed hyperlipidemia Morbid obesity Morbid obesity with BMI of 45.0-49.9, adult Morbid obesity with BMI of 50.0-59.9, adult Obesity Pseudofolliculitis barbae Restless leg Skin mole Sleep apnea Thyroid nodule Urinary tract infection Vitamin B12 deficiency (non anemic) Vitamin D deficiency Yeast dermatitis Family History Denies family history of Diabetes CAD (coronary artery disease) Clotting disorder Dementia Hyperlipidemia Psychiatric illness Chronic kidney disease (CKD) Suicide Anesthesia complication Bleeding disorder Family history of premature coronary artery disease Lung disease Cancer Hypertension Stroke Social History Smoking and tobacco status: never smoked Alcohol intake: never Current occupational status: employed Current occupation: Nurse Data Anesthesia Cardiac Studies: No Data to Display
[2021-04-12] MEDS: sodium chloride 0.9% 1,000 ML 30 ML IV (07:15)
--- NOTE | 2021-04-12 07:45 | P.HP_ITS ---
Providers/Chief Complaint Primary Care Provider: VIVIEN Wells Chief Complaint: left plantar fascial release History of Present Illness 50 year old diabetic female patient here for follow up of her bilateral foot pain. Patient states that when she is up on her heels it is a 2/10 on the right and 6/10 on the left. Rest and elevation no longer help relieve the pain. Also her prescription of tramadol and prednisone has not given her any form of relief. Patient has a history of Contracture, left ankle and Plantar fasciitis. Patient states that when she utilizes ice it will help with the pain for about 15 minutes. Patient denies any subjective nausea, vomiting, fever, chills, shortness of breath or chest pain. Review of Systems General: Reports: 10 or more systems reviewed and unremarkable except in HPI and below Const: Denies: fever(s) or chills Eyes: Denies: change in vision Card: Denies: chest pain or palpitations Resp: Denies: dyspnea or productive cough GI: Denies: abdominal pain, nausea or vomiting : Denies: flank pain Musc: Reports: extremity pain, joint pain, joint stiffness, limited range of motion and deformity Skin/Breast: Reports: skin tenderness; Denies: rash Neuro: Reports: difficulty walking; Denies: numbness in extremities, sensory changes or frequent falls Psych: Denies: suicidal ideation Bulmaro/Lymph: Denies: easy bruising Medications/Allergies Home Medications Medication Instructions Recorded Confirmed Last Taken Type nitroglycerin 0.1 mg/hr 1 patch TRANSDERMAL DAILY #30 ea 09/06/20 04/11/21 Unknown Rx transdermal 24 hour patch folic acid 1 mg tablet 1 mg PO DAILY #90 tab 09/10/20 04/11/21 02/14/21 06:00 Rx tramadol 50 mg tablet 50 mg PO Q4H PRN 7 Days #42 tab 10/15/20 04/11/21 10/25/20 Rx hydrocodone 5 mg-acetaminophen 325 1 tab PO .q4-6 PRN 5 Days #20 tab 12/27/20 04/11/21 01/17/21 Rx mg tablet tizanidine 4 mg tablet See Rx Instructions .ROUTE 01/23/21 04/11/21 Unknown Rx .COMPLEX #30 tab citalopram 40 mg PO DAILY 02/12/21 04/11/21 02/14/21 06:00 History levothyroxine [Euthyrox] 175 mcg PO DAILY 02/12/21 04/11/21 02/14/21 06:00 History losartan 50 mg PO DAILY 02/12/21 04/11/21 02/14/21 06:00 History pantoprazole [Protonix] 40 mg PO DAILY 30 Days #30 tab 02/14/21 04/11/21 Unknown Rx cholecalciferol (vitamin D3) 1,250 See Rx Instructions .ROUTE 02/25/21 04/11/21 Unknown Rx mcg (50,000 unit) capsule .COMPLEX #4 cap cyanocobalamin (vitamin B-12) See Rx Instructions .ROUTE 03/05/21 04/11/21 Unknown Rx 1,000 mcg/mL injection solution .COMPLEX #2 ml adalimumab 40 mg/0.8 mL 40 mg SUBCUT Q14D #2 ea 04/04/21 04/11/21 Unknown Rx subcutaneous syringe kit omega-3 fatty acids 500 mg capsule 500 mg PO DAILY 04/04/21 04/11/21 Unknown History diphenhydramine 25 1 tab PO Q6H PRN 04/11/21 04/11/21 Unknown History mg-acetaminophen 500 mg tablet ropinirole 0.5 mg tablet 0.5 - 1 mg PO DAILY 30 Days #60 tab 04/11/21 04/11/21 Unknown Rx Allergies Allergy/AdvReac Type Severity Reaction Status Date / Time bupropion [From Wellbutrin] Allergy Unknown unknown Verified 04/11/21 14:43 doxycycline Allergy Unknown unknown Verified 04/11/21 14:43 gabapentin Allergy Unknown unknown Verified 04/11/21 14:43 influenza virus vacc Allergy Unknown unknown Verified 04/11/21 14:43 trivalent, split [From Fluzone] meperidine [From Demerol] Allergy Unknown unknown Verified 04/11/21 14:43 morphine Allergy Unknown unknown Verified 04/11/21 14:43 adhesive tape Allergy ALGY-Rash Verified 04/11/21 14:43 PFSH 2 PFSH: Medical History Achilles tendinosis of right lower extremity Anemia Breast cancer screening by mammogram Bronchitis with acute wheezing Colon polyp DDD (degenerative disc disease), lumbar Decreased GFR Depression with anxiety Edema Essential hypertension Fatigue Fibromyalgia Goiter Francia's deformity of right heel Hypersomnia Hypertension, benign Hypothyroidism Left hip pain Lower respiratory infection Lumbar pain with radiation down left leg Medication management Mixed hyperlipidemia Morbid obesity Morbid obesity with BMI of 45.0-49.9, adult Morbid obesity with BMI of 50.0-59.9, adult Obesity Pseudofolliculitis barbae Restless leg Skin mole Sleep apnea Thyroid nodule Urinary tract infection Vitamin B12 deficiency (non anemic) Vitamin D deficiency Yeast dermatitis Family History Denies family history of Diabetes CAD (coronary artery disease) Clotting disorder Dementia Hyperlipidemia Psychiatric illness Chronic kidney disease (CKD) Suicide Anesthesia complication Bleeding disorder Family history of premature coronary artery disease Lung disease Cancer Hypertension Stroke Social History Smoking and tobacco status: never smoked Alcohol intake: never Current occupational status: employed Current occupation: Nurse Dietary Habits: Caffeine: Yes Caffeine intake frequency: carbonated beverages and coffee Vital Signs Vitals Signs: Last Vital Signs Temp 97.5 F L 04/12/21 06:51 Pulse 67 04/12/21 06:51 Resp 18 04/12/21 06:51 BP 159/84 04/12/21 06:51 Pulse Ox 96 04/12/21 06:51 Weight: Weight last 48 hrs Weight 330 lb Physical Exam Narrative: EXAM NARRATIVE: Patient is alert and oriented ?3 and in no acute distress. The following is a focused left lower extremity exam. VASCULAR: Dorsalis pedis and posterior tibial arteries palpable +2. Capillary refill time less than 3 seconds to the distal hallux bilaterally. Calf is supple and nontender proximally and distally. Mild edema at the operative site consistent with postoperative course. NEUROLOGICAL: Protective sensation intact to light touch. DERMATOLOGICAL: Lower extremity skin is well-hydrated, normal texture and turgor. There are no open sores or lesions noted to the lower extremities. No erythema or ecchymosis present to the bilateral legs and feet. MUSCULOSKELETAL: Pain to palpation that is exquisite at the medial band of the plantar fascia left foot. No palpable nodule. Ankle joint dorsiflexion is near 10 degrees. Muscle strength 5 out of 5 in all 3 cardinal planes. CARDIOVASCULAR: S1, S2, normal rate, normal rhythm. Dorsalis pedis and posterior tibial arteries palpable. LUNGS: Clear to auscltation, no use of acessory muscles, no crackles or wheezes. A&P Assessment and plan (1) Plantar fasciitis, left: Status: Acute (2) Left foot pain: Status: Acute Recalcitrant plantar fasciitis greater than 1 year left foot failed conservative measures consisting of supportive shoes she currently wears gravity to fire, custom orthotics, at home and formal physical therapy, oral and local steroid injections as well as anti-inflammatories. Would like to discuss plantar fascial release. This is discussed in length both risks versus benefits, greatest concern would be collapse of the longitudinal arch and subsequent painful flatfoot as well as complete rupture of the plantar fascia after releasing the medial portion. Also surgical site dehiscence and infection. Risks include pain, bleeding, numbness, infection, failure to alleviate pain, progression of flatfoot with collapse of the medial longitudinal arch, transfer pressure and transfer pain, complete rupture of the plantar fascia need for further surgical intervention. Also painful scar, hypertrophic scar, surgical site dehiscence, chronic numbness and swelling. Patient wants to proceed with surgical intervention with left plantar fascial release 04/12/2021 will be outpatient. Duration of procedure 20 minutes. Coding Level of Care Code Acute Therapeutic Activities Services Worker for [facility] Fwd Diagnoses Plantar fasciitis, left M72.2 Left foot pain M79.672
--- NOTE | 2021-04-12 07:47 | W.PM.OPSUD ---
Surgery/Procedure H&P Update DATE OF PROCEDURE: April 12, 2021 DATE H&P PERFORMED: 04/12/21 H&P UPDATE INFORMATION: I have reviewed H&P completed within last 30 days, I have examined patient prior to procedure, No changes to prior documentation and H&P is in [facility] EMR on date indicated PREOP DIAGNOSIS: Recalcitrant plantar fasciitis, left foot. PLANNED PROCEDURE: Operation Date: 04/12/21 08:10 Proposed Procedures p Left plantar fascial release 49334 M72.2 M79.672(Left) - Larry Caro DPM
--- NOTE | 2021-04-12 08:02 | PM.OP ---
Operative Report Date of procedure: April 12, 2021 Pre-op Diagnosis: Recalcitrant plantar fasciitis, left foot. Post-op diagnosis: same Post-op Findings: Thickening of the left plantar fascia Procedure Done: Left plantar fascial release CPT code 45709 Implants: 3-0 Prolene Specimens removed/disposition: None Pathology: None Surgeon: Larry Caro D.P.M. Television Installer Helper: Kannan Anesthesia: MAC Estimated blood loss: Less than 5 mL Tourniquet time: 11 minutes IV fluids: None Urine output: None Complications: None Findings: Thickening of the left plantar fascia Condition: stable Disposition: PACU Brief History: Patient has had recalcitrant left plantar fasciitis failed conservative treatment measures and would like to proceed with plantar fascial release as this is affected her ability to enjoy everyday activities and get through her workday she has pain on a daily basis with standing and walking. Has custom orthotics, supportive shoes, has done physical therapy both at home and formally, local cortisone and night splint as well as oral anti-inflammatories without relief. Discussed plantar fascial release as the next course of action she wishes to proceed no guarantees written, expressed or implied. Risks include pain, bleeding, numbness, painful scar, surgical site dehiscence, complete rupture of the plantar fascia, collapse of the medial longitudinal arch and progression of flatfoot which may be painful or symptomatic. Patient wishes to proceed, Covid is negative, n.p.o. since midnight, informed consent has been signed. Procedure: Under mild sedation the patient was brought to the operating room remained on the gurney in supine position. A timeout was performed. Anesthesia was then administered by the anesthesia service. Local anesthesia injected by myself 30 cc of 0.5% Marcaine plain starting with a tibial nerve block and then diffusely at the plantar heel near the operative site. Well-padded pneumatic tourniquet applied to the left high calf. Left lower extremity was then scrubbed, prepped and draped utilizing normal aseptic technique. Left foot was wrapped with an Esmarch bandage and a tourniquet inflated to 250 mmHg. Attention was directed to the left plantar foot at the instep resting skin lines were identified and parallel with a resting skin tension line a linear transverse incision was performed with dissection carried down to the plantar fascia utilizing blunt and sharp technique. Care was taken to retract and preserve neurovascular tendinous structures. All bleeders were ligated and cauterized as necessary. Medial two thirds of the plantar fascia was released sharply with a 15 blade and scissors under direct visualization. Incision was then flushed with copious amounts of sterile saline solution and closed with 3-0 Prolene. Incision was dressed with Adaptic, sterile 4 x 4, Kerlix and Earnest wrap. Cam boot was applied to the left lower extremity. Tourniquet was then deflated and a prompt hyperemic response is noted to the distal digits of the left foot. Patient tolerated the procedure and anesthesia well was transferred to the PACU with vital signs stable vascular status intact. Was given postoperative at home care instructions and follow-up as well as my cell phone number to contact with any postoperative questions or concerns. She is to be nonweightbearing to the left lower extremity with a cam boot may heel touch only for transfers. She is provided a prescription for cyclobenzaprine, hydrocodone and Augmentin sent to [facility]'s pharmacy.
[2021-04-12 08:33] VITALS: BP 140/80; PULSE 76; RESP 16; TEMP 36.8; O2SAT 98
[2021-04-12 08:38] VITALS: BP 111/82; PULSE 79; RESP 16; O2SAT 98
[2021-04-12 08:43] VITALS: BP 122/85; PULSE 73; RESP 16; TEMP 36.4; O2SAT 96
[2021-04-12 08:45] VITALS: BP 141/88; PULSE 67; RESP 16; TEMP 37; O2SAT 96
[2021-04-12 09:00] VITALS: BP 124/95; PULSE 67; RESP 18; O2SAT 95
--- NOTE | 2021-04-12 09:11 | PC.NURSE ---
Went over discharge instruction w/patient and family. Informed both that new meds were sent to [facility]'s pharmacy. Given written and verbal instruction on new meds. Re-emphasized Dr. Caro's written instructions on after care and upcoming appointment. All questions answered.
--- NOTE | 2021-04-12 09:22 | ANE.PACU2 ---
Inpatient post-anesthesia follow up: Airway intact: Yes Vital signs: Temperature 98.6 F Pulse Rate 67 Respiratory Rate 18 Blood Pressure 124/95 Pulse Oximetry 95 Oxygen Delivery Me thod Room Air Oxygen Flow Rate 4 Fraction of Inspir ed Oxygen Hydration adequate: Yes Nausea and vomiting: No Pain level: 2 Mental status: Baseline
== END 2021-04-12 09:17 | disposition home or self-care (01) ==
PROVIDERS: PCP Nurse Practitioner Family; Visit Provider Podiatrist Foot & Ankle Surgery
PROC: (CPT 28261; principal; 2021-04-12 08:05)
DX: M72.2 Plantar fascial fibromatosis (principal); J44.9 Chronic obstructive pulmonary disease, unspecified; G47.30 Sleep apnea, unspecified; I10 Essential (primary) hypertension; K21.9 Gastro-esophageal reflux disease without esophagitis; E66.01 Morbid (severe) obesity due to excess calories; Z68.43 Body mass index [BMI] 50.0-59.9, adult; M51.36 Other intervertebral disc degeneration, lumbar region; M79.7 Fibromyalgia; E03.9 Hypothyroidism, unspecified; E78.2 Mixed hyperlipidemia
CPT/HCPCS: 28060; J2250; J3010; J3490; J7030

== ENCOUNTER 2021-05-03 09:32 | Outpatient (CLI) | payer OTHER, SELFPAY ==
[2021-05-03 10:02] LABS: Basophils # 0.1 10^3/uL (0.0-0.1); Basophils % 0.8 %; Eosinophils # 0.3 10^3/uL (0.0-0.8); Eosinophils % 4.7 %; Hematocrit 39.5 % (37.0-47.0); Hemoglobin 12.6 g/dL (11.5-15.3); Lymphocytes # 1.7 10^3/uL (0.8-4.8); Lymphocytes % 27.5 %; Mean Corpuscular HGB Conc 31.9 g/dL (30.0-36.0); Mean Corpuscular Hemoglobin 32.8 pg (28.0-34.0); Mean Corpuscular Volume 102.9 fl (81-99); Mean Platelet Volume 11.6 fL (7.4-10.4); Monocytes # 0.4 10^3/uL (0.2-0.9); Monocytes % 6.1 %; Neutrophils # 3.71 10^3/uL (1.8-7.7); Neutrophils % 59.9 %; Nucleated Red Blood Cells % 0 %; Platelet Count 131 10^3/cmm (130-400); Red Blood Count 3.84 10^6/uL (4.1-5.3); Red Cell Distribution Width 13.8 % (12.1-15.1); White Blood Count 6.2 10^3/uL (4.0-10.0)
[2021-05-03 10:32] LABS: Alanine Aminotransferase 33 U/L (0-33); Albumin Level 3.9 g/dL (3.5-5.2); Alkaline Phosphatase 73 IU/L (35-105); Anion Gap 13.8 (5-19); Aspartate Amino Transferase 48 U/L (0-32); Blood Urea Nitrogen 11 mg/dL (6-20); C Reactive Protein 9.1 mg/L (0.0-4.9); Calcium 8.8 mg/dL (8.5-10.5); Carbon Dioxide 25 mmol/L (22-29); Chloride 103 mmol/L (98-107); Globulin 3.1 g/dL (1.3-4.6); Glomerular Filtration Rate 88.6 mL/min (90-130); Glucose 128 mg/dL (65-115); Osmolality Calculated 287 mOsm/kg (285-295); Potassium 3.8 mmol/L (3.5-5.1); Sodium 138 mmol/L (136-145); Total Bilirubin 0.5 mg/dL (0.15-1.2)
[2021-05-06 12:38] LABS: Erythrocyte Sedimentation Rate 22 mm/hr (0-15)
== END 2021-05-03 09:33 | disposition home or self-care (01) ==
PROVIDERS: PCP Nurse Practitioner Family; Visit Provider Internal Medicine
DX: L40.50 Arthropathic psoriasis, unspecified (principal); Z79.899 Other long term (current) drug therapy
CPT/HCPCS: 36415; 80053; 85025; 85651; 86140

== ENCOUNTER → 2021-05-30 09:56 | Outpatient (BNVA) | payer OTHER, SELFPAY | PROVIDERS: PCP Nurse Practitioner Family; Visit Provider Nurse Practitioner Family | DX: D51.9 Vitamin B12 deficiency anemia, unspecified (principal) | CPT/HCPCS: 82607; 83921 ==

== ENCOUNTER → 2021-09-17 09:47 | Outpatient (BNVA) | payer BC, SELFPAY | PROVIDERS: PCP Nurse Practitioner Family; Visit Provider Internal Medicine | DX: L40.4 Guttate psoriasis (principal); L40.50 Arthropathic psoriasis, unspecified; Z79.899 Other long term (current) drug therapy | CPT/HCPCS: 80053; 85025; 85651; 86140 ==

== ENCOUNTER → 2022-09-29 08:07 | Outpatient (BNVA) | payer BC, SELFPAY | PROVIDERS: PCP Nurse Practitioner Family; Visit Provider Podiatrist Foot & Ankle Surgery | DX: M19.072 Primary osteoarthritis, left ankle and foot (principal); S93.622A Sprain of tarsometatarsal ligament of left foot, initial encounter; X58.XXXA Exposure to other specified factors, initial encounter | CPT/HCPCS: 73630 ==

== ENCOUNTER 2023-02-27 07:44 | Day surgery (SDC) | payer BC, SELFPAY ==
[2023-02-26 10:03] VITALS: BMI 43.7
[2023-02-27] VITALS (7 sets, daily range): BP systolic 136–157; BP diastolic 76–108; PULSE 56–59; RESP 16–18; TEMP 36.1–36.6; O2SAT 96–99
--- NOTE | 2023-02-27 | XR_ITS ---
WS: [id number] C-ARM RADIOGRAPHS LEFT CALCANEUS; 1 IMAGES HISTORY: PLANTAR SURGERY COMPARISON: None available. Single lateral image of the left calcaneus is submitted. IMPRESSION: Lateral calcaneus left foot submitted. Intraoperative imaging during procedure.
[2023-02-27] MEDS: sodium chloride 0.9% 1,000 ML 30 ML IV (08:29)
--- NOTE | 2023-02-27 08:42 | ANES.PREANE2 ---
Pre-Anesthetic Assessment Height/Weight: Height 1.73 m Weight 130.635 kg Temp Pulse Resp BP Pulse Ox O2 Del Method 97.8 F 57 L 16 157/108 98 Room Air 02/27/23 07:59 02/27/23 07:59 02/27/23 07:59 02/27/23 07:59 02/27/23 07:59 02/27/23 08:09 Preop Diagnosis: Left plantar fasciitis. Bone marrow edema syndrome left calcaneus. Operation Date: 02/27/23 09:45 Proposed Procedures p Left plantar fasciectomy.? Possible ostectomy of calcaneus, left 95211, 91614,M72.2(Left) - Larry Caro DPM s Possible ostectomy of calcaneus, left(Left) - Larry Caro DPM Familial anesthetic complications: PONV Was Beta Paula taken within 24 hours: N/A Was Clonidine taken within 24 hours: N/A Last intake: Intake Last Liquid Date 02/26/23 Last Liquid Time 22:00 Last Solid Date 02/26/23 Last Solid Time 19:00 Social Tobacco and No alcohol Exam alert, oriented x 3, clear to auscultation bilaterally and regular rate & rhythm Airway Mallampati: Class II Dentition: false Pulmonary Sleep Apnea CV/HEM Anemia and Hypertension GI Gastroesophageal Reflux Disease Metabolic Morbid Obesity and Thyroid Disease Anesthetic Plan ASA status: 3 Anesthesia: MAC Risk of > 500 ml blood loss (7ml/kg in children): No Medications/Allergies Home Medications Medication Instructions Recorded Confirmed Last Taken Type nitroglycerin 0.1 mg/hr 1 patch transdermal DAILY #30 ea 09/06/20 02/26/23 Unknown Rx transdermal 24 hour patch (Nitro-Dur) levothyroxine 175 mcg tablet 50 mcg PO DAILY 02/12/21 02/26/23 02/26/23 History (Euthyrox) diphenhydramine 25 1 tab PO Q6H PRN Pain (Scale Score 04/11/21 02/26/23 2 Weeks Ago History mg-acetaminophen 500 mg tablet 1-3) ~02/12/23 (Tylenol PM Extra Strength) citalopram 40 mg tablet See Rx Instructions .Route 06/11/21 02/26/23 1 Day Ago Rx .COMPLEX #30 tabs ~02/25/23 pantoprazole 40 mg tablet,delayed 40 mg PO DAILY 30 days #30 tabs 06/25/21 02/26/23 02/26/23 Rx release (Protonix) tizanidine 4 mg tablet See Rx Instructions .Route 07/09/21 02/26/23 1 Day Ago Rx .COMPLEX #60 tabs ~02/25/23 folic acid 1 mg tablet 1 mg PO DAILY #90 tabs 09/25/21 02/26/23 02/26/23 Rx losartan 50 mg tablet See Rx Instructions .Route 09/25/21 02/26/23 02/26/23 Rx .COMPLEX #30 tabs adalimumab 40 mg/0.8 mL 40 mg (0.8 mL) SUBCUT Q14D #2 ea 10/08/21 02/26/23 02/18/23 Rx subcutaneous syringe kit (Humira) cholecalciferol (vitamin D3) 1,250 See Rx Instructions .Route 11/01/21 02/26/23 1 Day Ago Rx mcg (50,000 unit) capsule .COMPLEX #4 caps ~02/25/23 Sole Supports #1 ea 09/29/22 02/19/23 Unknown Rx cam walker #1 ea 02/19/23 02/19/23 Unknown Rx Allergies Allergy/AdvReac Type Severity Reaction Status Date / Time bupropion [From Wellbutrin] Allergy Unknown unknown Verified 02/19/23 07:23 doxycycline Allergy Unknown unknown Verified 02/19/23 07:23 gabapentin Allergy Unknown unknown Verified 02/19/23 07:23 influenza virus vacc Allergy Unknown unknown Verified 02/19/23 07:23 trivalent, split [From Fluzone] meperidine [From Demerol] Allergy Unknown unknown Verified 02/19/23 07:23 morphine Allergy Unknown unknown Verified 02/19/23 07:23 adhesive tape Allergy ALGY-Rash Verified 02/19/23 07:23 Alpha-Gal Allergy Unknown Verified 02/26/23 09:57 (Lurblgemm-Srwou-1,3-Gala Current Medications Generic Name Dose Route Start Last Admin Trade Name Freq PRN Reason Stop Dose Admin Sodium Chloride 1,000 mls @ 30 mls/hr 02/27/23 08:00 02/27/23 08:29 Sodium Chloride 0.9% IV 02/28/23 07:59 30 mls/hr .Q24H LUCAS Administration PFSH Anesthesia Medical History Achilles tendinosis of right lower extremity Anemia Breast cancer screening by mammogram Bronchitis with acute wheezing Colon polyp DDD (degenerative disc disease), lumbar Decreased GFR Depression with anxiety Edema Essential hypertension Fatigue Fibromyalgia Goiter Francia's deformity of right heel Hypersomnia Hypertension, benign Hypothyroidism Left hip pain Lower respiratory infection Lumbar pain with radiation down left leg Medication management Migraine headache with aura Mixed hyperlipidemia Morbid obesity Morbid obesity with BMI of 45.0-49.9, adult Morbid obesity with BMI of 50.0-59.9, adult Obesity Pseudofolliculitis barbae Restless leg Skin mole Sleep apnea Thyroid nodule Urinary tract infection Vitamin B12 deficiency (non anemic) Vitamin D deficiency Yeast dermatitis Family History Denies family history of Diabetes CAD (coronary artery disease) Clotting disorder Dementia Hyperlipidemia Psychiatric illness Chronic kidney disease (CKD) Suicide Anesthesia complication Bleeding disorder Family history of premature coronary artery disease Lung disease Cancer Hypertension Stroke Social History Smoking and tobacco status: current every day smoker cigarettes Packs smoked per day: 1 Alcohol intake: never Substance/Drug Use: never Current occupational status: employed Current occupation: Nurse Data Anesthesia Cardiac Studies: No Data to Display
--- NOTE | 2023-02-27 09:59 | W.PM.OPSUD ---
Surgery/Procedure H&P Update DATE OF PROCEDURE: February 27, 2023 DATE H&P PERFORMED: 02/18/23 CHANGES TO PREVIOUS DOCUMENTATION: none PREOP DIAGNOSIS: Left plantar fasciitis. Bone marrow edema syndrome left calcaneus. PLANNED PROCEDURE: Operation Date: 02/27/23 09:45 Proposed Procedures p Left plantar fasciectomy.? Possible ostectomy of calcaneus, left 06931, 98813,M72.2(Left) - Larry Caro DPM s Possible ostectomy of calcaneus, left(Left) - Larry Caro DPM
[2023-02-27] MEDS: ceFAZolin 3,000 MG in sodium chloride 0.9% (100 ml) 100 ML 200 MG IV (10:22)
[2023-02-27] MEDS: BUPivacaine 0.5% INJ 30 mL 20 ML INJECTION (10:34)
[2023-02-27] MEDS: BUPivacaine liposome 13.3 mg/mL SDV 10 mL 133 MG XX (10:34)
--- NOTE | 2023-02-27 11:12 | P.OP_ITS ---
Operative Report Date of procedure: February 27, 2023 Pre-op diagnosis: Preop Diagnosis Left plantar fasciitis. Bone marrow edema syndrome left calcaneus. Post-op diagnosis: Same Post-op findings: Plantar fascial fibromatosis and calcaneal enthesophyte Procedure done: Plantar fasciectomy with removal of calcaneal spur, left foot. CPT code 43216 Implants: 3-0 nylon Specimens removed/disposition: None Surgeon: Larry Caro D.P.M. [employer] Integrator: Dominique Estimated blood loss: 5 28 IV fluids: 0 Urine output: None Complications: none Brief History: Patient examined and evaluated, findings and treatment options were discussed with patient at length.? She has failed conservative treatments for greater than 1 year consisting of supportive shoes, home physical therapy consisting of aggressive stretching, night splint, activity modifications, formal physical therapy, cortisone injections, has underwent a partial plantar fascial release and gastrocnemius recession.? Her pain at her left heel is affecting her overall quality of life she has pain with standing and walking, makes it difficult to work and enjoy hobbies and care everyday activities.? She is wishing to discuss further surgical options.? Discussed complete medial to lateral plantar fasciectomy and possible resection of calcaneal enthesophyte.? I reviewed at length with the patient, the risks, potential complications, benefits, alternatives, expectations, and typical outcomes associated with the surgery. The risks and potential complications were explained in detail, including but not limited to infection, wound dehiscence or soft tissue complications, bleeding and hematoma, chronic edema, neuritis or nerve damage producing numbness or chronic pain, CRPS, failure to relieve pain or worsening pain, thick / painful / unsightly scar, limited motion / stiffness, malposition, delayed union, malunion, or nonunion, fracture, reaction to implants, anesthetic complications, venous thromboembolism, and deformity recurrence.? I discussed the notion of no regrets with the patient as it pertains to complications and outcomes. The patient seemed to understand the nature of the proposed care and required convalescence. They asked appropriate questions, answered to their satisfaction. They are aware no guarantees can be made as to a satisfactory outcome and they understand there may be other possible unforeseen complications or outcomes not listed here that will be treated accordingly if they arise. There were no written or implied guarantees given to the patient. They gave informed consent to proceed. Procedure: Under mild sedation the patient was brought to the operating room and remained on the gurney in supine position. A timeout was performed. Anesthesia was then administered by the anesthesia service. Local anesthesia was injected by myself consisting of 20 cc of 0.5% Marcaine plain at the left medial , inferior and posterior calcaneus and 10 cc use of Exparel subcutaneously in a grid like fashi on at the left lateral calcaneus. Well-padded pneumatic tourniquet was applied to the left high calf. The left lower extremity was scrubbed, prepped and draped utilizing normal aseptic technique. The left lower extremity was then exanguinated with an Esmarch bandage and the tourniquet was inflated to 250 mmHg. Attention was directed to the left calcaneus where bony landmarks were palpated at the lateral and inferior border of the calcaneus. Utilizing C arm and triangulation and a [place] a skin incision was planned out to be medial and at the level of the plantar fascia near its origin at the calcaneal enthesophyte seen on the lateral view. #15 blade was utilized to incise skin with blunt dissection carried down to the plantar fascia this was isolated both dorsally and plantarly and incised from medial to lateral under direct visualization with a complete release and triangular wedge removed and passed from operative field. The incision was irrigated with copious amounts of Staticin solution. Inferior calcaneal enthesophyte was seen on lateral view of C arm and palpated directly. Utilizing a power rasp this was resected. Intraoperative C-arm confirmed resection of the enthesophyte. Given MRI findings of bone marrow edema at the inferior calcaneus perforations were made with a K wire for decompression of the inferior calcaneus, calcaneal cortex was of appropriate density and medullary bone also to have appropriate density. The incision was irrigated with copious months of Staticin solution, skin was closed with 3-0 nylon. Incision was then dressed with Adaptic, sterile 4 x 4's, Kerlix and Earnest wrap followed by application of a cam boot to the left lower extremity. Tourniquet was deflated and a prompt hyperemic response was noted to the distal digits of the left foot. Patient tolerated the procedure and anesthesia well and was transferred to the PACU with vital signs stable and vascular status intact. Following a period of postoperative monitoring she will be discharged home is to be nonweightbearing to the left lower extremity. Was given at home care instructions and scheduled follow-up as well as my cell phone number to contact with any postoperative questions or concerns.
--- NOTE | 2023-02-27 13:11 | ANE.PACU2 ---
Inpatient post-anesthesia follow up: Airway intact: Yes Vital signs: Temperature 97.2 F Pulse Rate 58 Respiratory Rate 18 Blood Pressure 136/76 Pulse Oximetry 96 Oxygen Delivery Me thod Room Air Oxygen Flow Rate 6 Fraction of Inspir ed Oxygen Hydration adequate: Yes Nausea and vomiting: No Pain level: 1 Mental status: Baseline
== END 2023-02-27 12:15 | disposition home or self-care (01) ==
PROVIDERS: Visit Provider Podiatrist Foot & Ankle Surgery
PROC: (CPT 28119; principal; 2023-02-27 09:35)
PROC: (CPT 28119; 2023-02-27 09:35)
DX: M72.2 Plantar fascial fibromatosis (principal); M77.32 Calcaneal spur, left foot; G47.30 Sleep apnea, unspecified; I10 Essential (primary) hypertension; E78.2 Mixed hyperlipidemia; D64.9 Anemia, unspecified; K21.9 Gastro-esophageal reflux disease without esophagitis; E66.01 Morbid (severe) obesity due to excess calories; Z68.41 Body mass index [BMI] 40.0-44.9, adult; Z79.899 Other long term (current) drug therapy; F17.210 Nicotine dependence, cigarettes, uncomplicated
CPT/HCPCS: 28119; 73650; 76000; C9290; J0690; J2704; J3010; J3490; J7030

== ENCOUNTER 2023-03-16 11:13 | Outpatient (CLI) | payer BC, SELFPAY | END 2023-03-16 11:14 | disposition home or self-care (01) | LOC: SPT 11:14 | PROVIDERS: Visit Provider Podiatrist Foot & Ankle Surgery | DX: Z46.89 Encounter for fitting and adjustment of other specified devices (principal); M72.2 Plantar fascial fibromatosis; M79.672 Pain in left foot | CPT/HCPCS: L4361 ==

== ENCOUNTER → 2023-05-21 07:18 | Outpatient (BNVA) | payer BC, SELFPAY | PROVIDERS: Visit Provider Podiatrist Foot & Ankle Surgery | DX: Z98.890 Other specified postprocedural states (principal) | CPT/HCPCS: 73630 ==

== ENCOUNTER → 2023-07-31 15:40 | Outpatient (BNVA) | payer SELFPAY | PROVIDERS: PCP Nurse Practitioner Family; Visit Provider Nurse Practitioner Family | DX: S83.92XA Sprain of unspecified site of left knee, initial encounter (principal); S86.912A Strain of unspecified muscle(s) and tendon(s) at lower leg level, left leg, initial encounter; J22 Unspecified acute lower respiratory infection; X58.XXXA Exposure to other specified factors, initial encounter | CPT/HCPCS: 73562; 73590 ==

== ENCOUNTER 2023-10-20 07:40 | Outpatient (CLI) | payer BC, SELFPAY ==
--- NOTE | 2023-10-20 08:00 | MR_ITS ---
WS: [id number] MRI LEFT ANKLE WITHOUT CONTRAST. COMPARISON: Foot MRI 02/16/2023, tib-fib radiographs 07/31/2023 Multiplanar, multisequence imaging is performed without contrast. The Achilles tendon appears intact. No significant thickening or thinning. The signal is normal. Ther e is a moderate amount of edema in Kager fat pad and mild fluid surrounding the Achilles tendon consi stent. There is a small amount of fluid in the retrocalcaneal bursa. There is also a small joint effu susan in the posterior recess. There is is a very small amount of fluid in the peroneal tendon sheath. No fractures or marrow edema. No additional abnormalities. Plantar fascia is normal. IMPRESSION: 1. No acute Achilles tendon tear or thickening. 2. Edema in Kager fat pad with mild retrocalcaneal bursitis. 3. Mild Achilles paratenonitis. 4. No fractures or marrow edema. 5. Very mild increased fluid in the peroneal tendon sheath.
== END 2023-10-20 07:41 | disposition home or self-care (01) ==
LOC: RAD 07:40
PROVIDERS: PCP Nurse Practitioner Family; Visit Provider Podiatrist Foot & Ankle Surgery
DX: S86.012A Strain of left Achilles tendon, initial encounter (principal); M77.52 Other enthesopathy of left foot and ankle; X58.XXXA Exposure to other specified factors, initial encounter
CPT/HCPCS: 73721

== ENCOUNTER 2023-11-11 06:00 | Outpatient (RCR) | payer BC, SELFPAY | END 2023-11-17 23:59 | disposition home or self-care (01) | LOC: WPT 06:00 | PROVIDERS: Visit Provider Podiatrist Foot & Ankle Surgery | DX: M71.58 Other bursitis, not elsewhere classified, other site (principal) | CPT/HCPCS: 97110; 97140; 97161 ==

== ENCOUNTER 2023-11-18 06:00 | Outpatient (RCR) | payer BC, SELFPAY | END 2023-12-18 23:59 | disposition home or self-care (01) | LOC: WPT 06:00 | PROVIDERS: Visit Provider Podiatrist Foot & Ankle Surgery | DX: M71.58 Other bursitis, not elsewhere classified, other site (principal) | CPT/HCPCS: 97110; 97112; 97140; 97530 ==

== ENCOUNTER 2024-03-03 05:48 | Day surgery (SDC) | payer BC, SELFPAY ==
[2024-03-03] VITALS (10 sets, daily range): BP systolic 91–137; BP diastolic 55–84; PULSE 55–61; RESP 12–18; TEMP 36.1–36.4; O2SAT 94–99
--- NOTE | 2024-03-03 06:50 | W.PM.OPSUD ---
Surgery/Procedure H&P Update DATE OF PROCEDURE: March 03, 2024 DATE H&P PERFORMED: 03/03/24 H&P UPDATE INFORMATION: I have reviewed H&P completed within last 30 days, I have examined patient prior to procedure, No changes to prior documentation and H&P is in [facility] [place] on date indicated PREOP DIAGNOSIS: Left Achilles tendinosis PLANNED PROCEDURE: Operation Date: 03/03/24 07:00 Proposed Procedures p Micro debridement left Achilles tendon(Left) - Larry Caro DPM s Platelet Rich Plasma Injection(Left) - Larry Caro DPM
[2024-03-03] MEDS: sodium chloride 0.9% 1,000 ML 30 ML IV (06:51)
--- NOTE | 2024-03-03 06:51 | ANES.PREANE2 ---
Pre-Anesthetic Assessment Height/Weight: Height 1.73 m Weight 125.645 kg Temp Pulse Resp BP Pulse Ox O2 Del Method O2 Flow Rate 97 F L 56 L 18 137/76 96 Room Air 96 03/03/24 06:19 03/03/24 06:19 03/03/24 06:19 03/03/24 06:19 03/03/24 06:19 03/03/24 06:19 03/03/24 06:19 Preop Diagnosis: Left Achilles tendinosis Operation Date: 03/03/24 07:00 Proposed Procedures p Micro debridement left Achilles tendon(Left) - Larry Caro DPM s Platelet Rich Plasma Injection(Left) - Larry Caro DPM Familial anesthetic complications: PONV Was Beta Paula taken within 24 hours: N/A Was Clonidine taken within 24 hours: N/A Last intake: Intake Last Liquid Date 03/02/24 Last Liquid Time 20:30 Last Solid Date 03/02/24 Last Solid Time 19:00 Social Tobacco and No alcohol Exam alert, oriented x 3, clear to auscultation bilaterally and regular rate & rhythm Airway Mallampati: Class III Dentition: false Pulmonary Sleep Apnea CV/HEM Hypertension GI Gastroesophageal Reflux Disease Metabolic Morbid Obesity Anesthetic Plan ASA status: 3 Anesthesia: MAC Risk of > 500 ml blood loss (7ml/kg in children): No Medications/Allergies Home Medications Medication Instructions Recorded Confirmed Last Taken Type levothyroxine 175 mcg tablet 50 mcg PO DAILY 02/12/21 03/02/24 03/02/24 History (Euthyrox) diphenhydramine 25 1 tab PO Q6H PRN Pain (Scale Score 04/11/21 03/02/24 2 Weeks Ago History mg-acetaminophen 500 mg tablet 1-3) ~02/12/23 (Tylenol PM Extra Strength) pantoprazole 40 mg tablet,delayed 40 mg PO DAILY 30 days #30 tabs 06/25/21 03/02/24 03/02/24 Rx release (Protonix) tizanidine 4 mg tablet See Rx Instructions .Route 07/09/21 03/02/24 03/02/24 Rx .COMPLEX #60 tabs folic acid 1 mg tablet 1 mg PO DAILY #90 tabs 09/25/21 03/02/24 03/02/24 Rx Sole Supports #1 ea 09/29/22 12/07/23 Unknown Rx ondansetron HCl 4 mg tablet 4 mg PO Q8H PRN nausea and 07/09/23 03/02/24 02/17/24 Rx vomiting 7 days #20 tabs meloxicam 15 mg tablet 15 mg PO ONCE #30 tabs 10/20/23 03/02/24 02/17/24 Rx cholecalciferol (vitamin D3) 1,250 1,250 mcg PO DAILY 03/03/24 03/03/24 02/29/24 History mcg (50,000 unit) capsule citalopram 40 mg tablet 40 mg PO DAILY 03/03/24 03/03/24 03/01/24 History hydrocodone 10 mg-acetaminophen 1 tab PO Q6H PRN pain 7 days #28 03/03/24 Unknown Rx 325 mg tablet tabs losartan 50 mg tablet 50 mg PO DAILY 03/03/24 03/03/24 03/02/24 History Allergies Allergy/AdvReac Type Severity Reaction Status Date / Time bupropion [From Wellbutrin] Allergy Unknown unknown Verified 12/07/23 06:55 doxycycline Allergy Unknown unknown Verified 12/07/23 06:55 gabapentin Allergy Unknown unknown Verified 12/07/23 06:55 influenza virus vacc Allergy Unknown unknown Verified 12/07/23 06:55 trivalent, split [From Fluzone] meperidine [From Demerol] Allergy Unknown unknown Verified 12/07/23 06:55 morphine Allergy Unknown unknown Verified 12/07/23 06:55 adhesive tape Allergy ALGY-Rash Verified 12/07/23 06:55 Alpha-Gal Allergy Unknown Verified 12/07/23 06:55 (Yghtjnltj-Fwwmd-4,3-Gala [facility] Anesthesia Medical History Muscle strain of lower extremity Muscle strain, lower leg Knee sprain Gastroenteritis Migraine headache with aura Colon polyp Skin mole Breast cancer screening by mammogram Edema Morbid obesity with BMI of 50.0-59.9, adult Urinary tract infection Morbid obesity with BMI of 45.0-49.9, adult Obesity Essential hypertension Sleep apnea Hypersomnia Yeast dermatitis Bronchitis with acute wheezing Lower respiratory infection DDD (degenerative disc disease), lumbar Vitamin B12 deficiency (non anemic) Decreased GFR Anemia Mixed hyperlipidemia Restless leg Medication management Fatigue Lumbar pain with radiation down left leg Left hip pain Vitamin D deficiency Pseudofolliculitis barbae Thyroid nodule Morbid obesity Hypothyroidism Hypertension, benign Francia's deformity of right heel Goiter Fibromyalgia Depression with anxiety Achilles tendinosis of right lower extremity Family History Denies family history of Diabetes CAD (coronary artery disease) Clotting disorder Dementia Hyperlipidemia Psychiatric illness Chronic kidney disease (CKD) Suicide Anesthesia complication Bleeding disorder Family history of premature coronary artery disease Lung disease Cancer Hypertension Stroke Social History Smoking and tobacco/nicotine status: current every day tobacco/nicotine user cigarettes Packs smoked per day: 1 Alcohol intake: never Substance/Drug Use: never Current occupational status: employed Current occupation: Nurse Data Anesthesia Cardiac Studies: No Data to Display
--- NOTE | 2024-03-03 06:51 | PM.OPSURHP ---
Providers/Chief Complaint Primary Care Provider: Jeff Guillaume Chief Complaint: M76.62 History of Present Illness Kristina Goodwin is a 53 year old female here for follow up of her left Achilles injury pain. She has been active in formal PT. She states that she continues to have lingering pain affecting her daily and overall quality of life. She underwent a long period of immobilization with cam boot greater than 4 weeks, transition to formal physical therapy greater than 4 weeks continues to have symptoms associated with pain and burning at the insertion of her left Achilles which requesting surgical options. Patient denies any subjective nausea, vomiting, fever, chills, shortness of breath or chest pain. Review of Systems General: Reports: 10 or more systems reviewed and unremarkable except in HPI and below Const: Denies: fever(s) or chills Eyes: Denies: change in vision Card: Denies: chest pain or palpitations Resp: Denies: dyspnea or productive cough GI: Denies: abdominal pain, nausea or vomiting : Denies: flank pain Musc: Reports: extremity pain, joint pain, joint stiffness, limited range of motion and deformity Skin/Breast: Reports: skin tenderness; Denies: rash Neuro: Reports: difficulty walking; Denies: numbness in extremities, sensory changes or frequent falls Psych: Denies: suicidal ideation Bulmaro/Lymph: Denies: easy bruising Medications/Allergies Home Medications Medication Instructions Recorded Confirmed Last Taken Type levothyroxine 175 mcg tablet 50 mcg PO DAILY 02/12/21 03/02/24 03/02/24 History (Euthyrox) diphenhydramine 25 1 tab PO Q6H PRN Pain (Scale Score 04/11/21 03/02/24 2 Weeks Ago History mg-acetaminophen 500 mg tablet 1-3) ~02/12/23 (Tylenol PM Extra Strength) pantoprazole 40 mg tablet,delayed 40 mg PO DAILY 30 days #30 tabs 06/25/21 03/02/24 03/02/24 Rx release (Protonix) tizanidine 4 mg tablet See Rx Instructions .Route 07/09/21 03/02/24 03/02/24 Rx .COMPLEX #60 tabs folic acid 1 mg tablet 1 mg PO DAILY #90 tabs 09/25/21 03/02/24 03/02/24 Rx Sole Supports #1 ea 09/29/22 12/07/23 Unknown Rx ondansetron HCl 4 mg tablet 4 mg PO Q8H PRN nausea and 07/09/23 03/02/24 02/17/24 Rx vomiting 7 days #20 tabs meloxicam 15 mg tablet 15 mg PO ONCE #30 tabs 10/20/23 03/02/24 02/17/24 Rx cholecalciferol (vitamin D3) 1,250 1,250 mcg PO DAILY 03/03/24 03/03/24 02/29/24 History mcg (50,000 unit) capsule citalopram 40 mg tablet 40 mg PO DAILY 03/03/24 03/03/24 03/01/24 History hydrocodone 10 mg-acetaminophen 1 tab PO Q6H PRN pain 7 days #28 03/03/24 Unknown Rx 325 mg tablet tabs losartan 50 mg tablet 50 mg PO DAILY 03/03/24 03/03/24 03/02/24 History Allergies Allergy/AdvReac Type Severity Reaction Status Date / Time bupropion [From Wellbutrin] Allergy Unknown unknown Verified 12/07/23 06:55 doxycycline Allergy Unknown unknown Verified 12/07/23 06:55 gabapentin Allergy Unknown unknown Verified 12/07/23 06:55 influenza virus vacc Allergy Unknown unknown Verified 12/07/23 06:55 trivalent, split [From Fluzone] meperidine [From Demerol] Allergy Unknown unknown Verified 12/07/23 06:55 morphine Allergy Unknown unknown Verified 12/07/23 06:55 adhesive tape Allergy ALGY-Rash Verified 12/07/23 06:55 Alpha-Gal Allergy Unknown Verified 12/07/23 06:55 (Blizoelba-Gtvme-8,3-Gala PFSH PFSH: Medical History Muscle strain of lower extremity Muscle strain, lower leg Knee sprain Gastroenteritis Migraine headache with aura Colon polyp Skin mole Breast cancer screening by mammogram Edema Morbid obesity with BMI of 50.0-59.9, adult Urinary tract infection Morbid obesity with BMI of 45.0-49.9, adult Obesity Essential hypertension Sleep apnea Hypersomnia Yeast dermatitis Bronchitis with acute wheezing Lower respiratory infection DDD (degenerative disc disease), lumbar Vitamin B12 deficiency (non anemic) Decreased GFR Anemia Mixed hyperlipidemia Restless leg Medication management Fatigue Lumbar pain with radiation down left leg Left hip pain Vitamin D deficiency Pseudofolliculitis barbae Thyroid nodule Morbid obesity Hypothyroidism Hypertension, benign Francia's deformity of right heel Goiter Fibromyalgia Depression with anxiety Achilles tendinosis of right lower extremity Family History Denies family history of Diabetes CAD (coronary artery disease) Clotting disorder Dementia Hyperlipidemia Psychiatric illness Chronic kidney disease (CKD) Suicide Anesthesia complication Bleeding disorder Family history of premature coronary artery disease Lung disease Cancer Hypertension Stroke Social History Smoking and tobacco/nicotine status: current every day tobacco/nicotine user cigarettes Packs smoked per day: 1 Alcohol intake: never Substance/Drug Use: never Current occupational status: employed Current occupation: Nurse Dietary Habits: Caffeine: Yes Vital Signs Vitals Signs: Last Vital Signs Temp 97 F L 03/03/24 06:19 Pulse 56 L 03/03/24 06:19 Resp 18 03/03/24 06:19 BP 137/76 03/03/24 06:19 Pulse Ox 96 03/03/24 06:19 O2 Del Method Room Air 03/03/24 06:19 O2 Flow Rate 96 03/03/24 06:19 Weight: Weight last 48 hrs Weight 277 lb Physical Exam Narrative: EXAM NARRATIVE: GENERAL: Patient is alert and oriented ?3 and in no acute distress. The following is a focused left lower extremity exam. VASCULAR: Dorsalis pedis and posterior tibial arteries palpable +2. Capillary refill time less than 3 seconds to the distal hallux bilaterally. Calf is supple and nontender proximally and distally. Mild edema at the operative site consistent with postoperative course. NEUROLOGICAL: Protective sensation intact to light touch. DERMATOLOGICAL: Well-healed cicatrix left foot. No erythema, warmth, ecchymosis or draining sores to the lower extremities. MUSCULOSKELETAL: Pain to palpation is at the medial insertion of the left Achilles tendon, mild tenderness at left watershed zone of the Achilles. More pain medially at Achilles insertion, left. No palpable dell or attenuation. No pain to palpation at the watershed zone of the left Achilles. No pain at the left myotendinous juncture of the Achilles. +5 muscle strength in all 3 planes bilateral foot and ankle. CARDIOVASCULAR: S1, S2, normal rate, normal rhythm. Dorsalis pedis and posterior tibial arteries palpable. LUNGS: Clear to auscltation, no use of acessory muscles, no crackles or wheezes. A&P Assessment and plan (1) Left calcaneal bursitis: (2) Achilles tendinosis of left ankle: (3) Left ankle pain: Qualifiers: Chronicity: chronic Qualified Code(s): M25.572 - Pain in left ankle and joints of left foot; G89.29 - Other chronic pain Plan Ms. Goodwin is an established 53 year old female patient here for follow up of her left Achilles injury. She has been active in formal PT. She states that she continues to have lingering pain affecting her daily and overall quality of life. She underwent a long period of immobilization with cam boot greater than 4 weeks, transition to formal physical therapy greater than 4 weeks continues to have symptoms associated with pain and burning at the insertion of her left Achilles which requesting surgical options. Discussed options ranging from micro debridement of the Achilles tendon with PRP injection versus aggressive open debridement and resection of bursa and osseous prominence. Due to aggressiveness of surgery and subsequent recovery she would like to proceed with a minimal approach consisting of micro debridement and PRP injection with the understanding that should this fail to labor symptoms she may require a larger surgery down the road. I reviewed at length with the patient, the risks, potential complications, benefits, alternatives, expectations, and typical outcomes associated with the surgery. The risks and potential complications were explained in detail, including but not limited to infection, wound dehiscence or soft tissue complications, bleeding and hematoma, chronic edema, neuritis or nerve damage producing numbness or chronic pain, CRPS, failure to relieve pain or worsening pain, thick / painful / unsightly scar, limited motion / stiffness, malposition, delayed union, malunion, or nonunion, fracture, reaction to implants, anesthetic complications, venous thromboembolism, and deformity recurrence. I discussed the notion of no regrets with the patient as it pertains to complications and outcomes. The patient seemed to understand the nature of the proposed care and required convalescence. They asked appropriate questions, answered to their satisfaction. They are aware no guarantees can be made as to a satisfactory outcome and they understand there may be other possible unforeseen complications or outcomes not listed here that will be treated accordingly if they arise. There were no written or implied guarantees given to the patient. They gave informed consent to proceed. Left Achilles tendon debridement and PRP injection Local MAC versus LMA per anesthesia preference Duration of procedure 20 minutes davian Sneed Coding Level of Care Code Acute Code for [facility] Fwd Diagnoses Left calcaneal bursitis M77.52 Achilles tendinosis of left ankle M67.874 Chronic pain of left ankle M25.572; G89.29 Chronicity: chronic
[2024-03-03] MEDS: ceFAZolin 3,000 MG in sodium chloride 0.9% (100 ml) 100 ML 200 MG IV (07:06)
[2024-03-03] MEDS: BUPivacaine 0.5% INJ 10 mL INJECTION (07:42)
[2024-03-03] MEDS: lidocaine 1% INJ 10 mL (per mL) XX (07:43)
--- NOTE | 2024-03-03 08:09 | W.PM.BPON ---
Date of Procedure: 10/02/23 Surgeon: Larry Caro DPM Import/Export Specialist(s): BAUTISTA Procedure(s) performed: Left Achilles debridement with platelet rich plasma injection to left Achilles. Findings of the procedure(s): Tendinosis of the left Achilles tendon. Estimated blood loss: 1 cc Specimen(s) removed: No specimens Post-operative diagnosis: Left Achilles tendinosis. Tourniquet time 9 minutes, general LMA, gurney, supine, no complications with anesthesia or surgery.
--- NOTE | 2024-03-03 08:10 | P.OP_ITS ---
Operative Report Date of procedure: March 03, 2024 Pre-op diagnosis: Achilles tendinitis, left leg M76.62 Post-op diagnosis: Achilles tendinitis, left leg M76.62 Procedure done: Debridement of left Achilles tendon. CPT code 22552 Platelet left plasma injection right Achilles. CPT code 93815 with platelet rich plasma injection Specimens removed/disposition: None Surgeon: Larry Caro DPM Special Machine Operator: BAUTISTA Estimated blood loss: 1 milliliter 9 minutes IV fluids: See intraoperative documentation Urine output: None Complications: None Brief History: Ms. Goodwin is an established 53 year old female patient here for follow up of her left Achilles injury. She has been active in formal PT. She states that she continues to have lingering pain affecting her daily and overall quality of life. She underwent a long period of immobilization with cam boot greater than 4 weeks, transition to formal physical therapy greater than 4 weeks continues to have symptoms associated with pain and burning at the insertion of her left Achilles which requesting surgical options. Discussed options ranging from micro debridement of the Achilles tendon with PRP injection versus aggressive open debridement and resection of bursa and osseous prominence. Due to aggressiveness of surgery and subsequent recovery she would like to proceed with a minimal approach consisting of micro debridement and PRP injection with the understanding that should this fail to labor symptoms she may require a larger surgery down the road. I reviewed at length with the patient, the risks, potential complications, benefits, alternatives, expectations, and typical outcomes associated with the surgery. The risks and potential complications were explained in detail, including but not limited to infection, wound dehiscence or soft tissue complications, bleeding and hematoma, chronic edema, neuritis or nerve damage producing numbness or chronic pain, CRPS, failure to relieve pain or worsening pain, thick / painful / unsightly scar, limited motion / stiffness, malposition, delayed union, malunion, or nonunion, fracture, reaction to implants, anesthetic complications, venous thromboembolism, and deformity recurrence. I discussed the notion of no regrets with the patient as it pertains to complications and outcomes. The patient seemed to understand the nature of the proposed care and required convalescence. They asked appropriate questions, answered to their satisfaction. They are aware no guarantees can be made as to a satisfactory outcome and they understand there may be other possible unforeseen complications or outcomes not listed here that will be treated accordingly if they arise. There were no written or implied guarantees given to the patient. They gave informed consent to proceed. Procedure: Under mild sedation patient was brought to the operating room and remained on the gurney in supine position. A timeout was performed. Anesthesia was then administered by the anesthesia service. Local anesthesia injected by myself. Well-padded pneumatic tourniquet applied to the left high calf. Left lower extremity was scrubbed, prepped and draped utilizing normal aseptic technique. Left foot and ankle were then exanguinated with Esmarch bandage and tourniquet inflated to 250 mmHg. Attention was directed to the left Achilles tendon from watershed zone down to insertion was mild thickening. Incision made directly over the Achilles tendon and degenerative tendon was sharply debrided along with multiple micro debr idements along the affected tendon with Coblation creating perforations within the tendon promoting vascular ingrowing and healing. Previously prepared sample of patient's on blood was in process to obtain platelet rich plasma which was then injected around the debrided Achilles tendon to enhance healing total of 1.5 cc of platelet rich plasma was injected. The incision was irrigated with copious amounts of sterile skin solution. OpSite over the operative site was applied followed by compressive dressing and patient placed into a cam boot. Tourniquet was deflated and a prompt hyperemic response is noted to the distal digits of the left foot. Patient tolerated the procedure and anesthesia well and was transferred to the PACU with vital signs stable and vascular status intact. Following a period of postoperative monitoring he will be discharged home was given at home care instructions and scheduled follow-up.
[2024-03-03] MEDS: HYDROcodone-acetaminophen 10-325 mg Tablet 1 TAB PO (08:33)
--- NOTE | 2024-03-03 08:50 | ANE.PACU2 ---
Inpatient post-anesthesia follow up: Airway intact: Yes Vital signs: Temperature 97 F Pulse Rate 55 Respiratory Rate 18 Blood Pressure 107/75 Pulse Oximetry 97 Oxygen Delivery Me thod Room Air Oxygen Flow Rate 96 Fraction of Inspir ed Oxygen Hydration adequate: Yes Nausea and vomiting: No Pain level: 1 Mental status: Baseline
== END 2024-03-03 08:57 | disposition home or self-care (01) ==
PROVIDERS: Visit Provider Podiatrist Foot & Ankle Surgery
PROC: (CPT 20550; principal; 2024-03-03 07:00)
PROC: (CPT 0232T; 2024-03-03 07:00)
DX: M76.62 Achilles tendinitis, left leg (principal); G89.29 Other chronic pain; G47.30 Sleep apnea, unspecified; I10 Essential (primary) hypertension; K21.9 Gastro-esophageal reflux disease without esophagitis; E66.01 Morbid (severe) obesity due to excess calories; Z68.41 Body mass index [BMI] 40.0-44.9, adult; E78.2 Mixed hyperlipidemia; M79.7 Fibromyalgia; F17.210 Nicotine dependence, cigarettes, uncomplicated
CPT/HCPCS: 20550; 27680; 36415; J0690; J1100; J1200; J2405; J2704; J3010; J3490; J7030

== ENCOUNTER 2024-07-15 05:24 | Day surgery (SDC) | payer BC, SELFPAY ==
[2024-07-15] VITALS (13 sets, daily range): BP systolic 129–153; BP diastolic 56–87; PULSE 57–65; RESP 8–60; TEMP 36.1–36.7; O2SAT 93–98; BMI 42.3
--- NOTE | 2024-07-15 06:11 | P.HPUD_ITS ---
Surgery/Procedure H&P Update DATE OF PROCEDURE: July 15, 2024 DATE H&P PERFORMED: 07/04/24 H&P UPDATE INFORMATION: I have reviewed H&P completed within last 30 days, I have examined patient prior to procedure, No changes to prior documentation and H&P is in [facility] EMR on date indicated PREOP DIAGNOSIS: Left Hagl[place] and achilles tendonopathy PLANNED PROCEDURE: Operation Date: 07/15/24 07:00 Proposed Procedures p Achilles Tendon Repair(Left) - Larry Caro DPM s Hagl[place] Resection(Left) - Larry Caro DPM
[2024-07-15] MEDS: sodium chloride 0.9% 1,000 ML 30 ML IV (06:24)
--- NOTE | 2024-07-15 06:50 | PM.OP ---
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 CPT code 72327 2) left Francia's resection. CPT code 14539 Implants: Arthrex Achilles speed bridge with ripstop. 3-0 Vicryl, 4-0 nylon Surgeon: Larry Caro DPM Head Librarian: Jacob Estimated blood loss: 2 mL 31 IV fluids: See intraoperative documentation Urine output: None Complications: None Brief History: 53 year old female patient presenting to clinic to discuss surgical procedure to left lower extremity. She has persistent pain at her insertion site of her left Achilles tendon that has failed to respond to extended period of time of immobilization and rest, at home physical therapy for greater than 6 weeks and formal physical therapy for greater than 6 weeks, she also history of a history of micro debridement with PRP injection to no avail. She is here to discuss surgical options. I reviewed at length with the patient, the risks, potential complications, benefits, alternatives, expectations, and typical outcomes associated with the surgery. The risks and potential complications were explained in detail, including but not limited to infection, wound dehiscence or soft tissue complications, bleeding and hematoma, chronic edema, neuritis or nerve damage producing numbness or chronic pain, CRPS, failure to relieve pain or worsening pain, thick / painful / unsightly scar, limited motion / stiffness, malposition, delayed union, malunion, or nonunion, fracture, reaction to implants, anesthetic complications, venous thromboembolism, and deformity recurrence. I discussed the notion of no regrets with the patient as it pertains to complications and outcomes. The patient seemed to understand the nature of the proposed care and required convalescence. They asked appropriate questions, answered to their satisfaction. They are aware no guarantees can be made as to a satisfactory outcome and they understand there may be other possible unforeseen complications or outcomes not listed here that will be treated accordingly if they arise. There were no written or implied guarantees given to the patient. They gave informed consent to proceed. Recommended calcaneal exostectomy with resection of left Francia's bump and debridement/repair of left Achilles tendon. Patient is agreeable wishes to proceed. Procedure: Anesthesia and Positioning: After obtaining informed consent, the patient was taken to the operating room and placed under general anesthesia with preoperative left popliteal block per anesthesia. The patient was positioned prone on the operating table with appropriate padding under the bony prominences. 2. Preparation and Drape: The left lower extremity was prepped and draped in the usual sterile fashion, ensuring that the operative site was adequately exposed. 3. Incision: A curvilinear incision was made medial to the midline over the Achilles tendon, extending from the level of the superior aspect of the calcaneal tuberosity proximally towards the mid-calf. 4. Exposure: The subcutaneous tissue was carefully dissected to expose the Achilles tendon and the underlying Francia's deformity. Care was taken to protect the sural nerve and lesser saphenous vein. 5. Francia's Resection: The prominent bony exostosis (Francia's deformity) left posterior calcaneus was identified. Using an osteotome and a rongeur, the exostosis was carefully resected, and the area was smoothed with a bone rasp. 6. Achilles Tendon Repair: Inspection of the left Achilles tendon revealed mid substance tearing and mucoid degeneration with thickening and disorganized collagen fibers that were sharply debrided. The degenerated portion of the tendon was debrided back to healthy tissue. The Achilles tendon was then repaired using the Achilles SpeedBridge technique. This involved placing suture anchors at the calcaneal insertion of the Achilles tendon, passing FiberWire sutures through the tendon, and securing the tendon back to its anatomical position with a knotless bridging construct to allow for optimal tensioning and footprint coverage. 7. Closure: The wound was irrigated with sterile saline. The subcutaneous tissue and skin were then closed in layers using absorbable sutures for the subcutaneous layer and 4-0 nylon for the skin closure. A sterile dressing was applied. 8. Postoperative Care: The patient's leg was placed in a multilayer compressive posterior splint in equinus position to immobilize the ankle and allow for tendon healing. Tourniquet was deflated and a prompt hyperemic response was noted to the distal digits of the left foot. Patient tolerated the procedure and anesthesia well and was transferred to the PACU with vital signs stable and vascular status intact. Following a period of postoperative monitoring to be discharged home without home care instructions and scheduled follow-up as well as myself number to contact me with any postoperative questions or concerns.
--- NOTE | 2024-07-15 07:01 | ANES.PREANE2 ---
Pre-Anesthetic Assessment Height/Weight: Height 1.73 m Temp Pulse Resp BP Pulse Ox O2 Del Method 97.6 F 65 18 153/82 97 Room Air 07/15/24 06:00 07/15/24 06:00 07/15/24 06:00 07/15/24 06:00 07/15/24 06:00 07/15/24 06:00 Preop Diagnosis: Left Haglunds and achilles tendonopathy Operation Date: 07/15/24 07:00 Proposed Procedures p Achilles Tendon Repair(Left) - Larry Caro DPM s Haglunds Resection(Left) - Larry Caro DPM Familial anesthetic complications: alpha gal Was Beta Paula taken within 24 hours: N/A Was Clonidine taken within 24 hours: N/A Last intake: > 8 hrs Social Tobacco and No alcohol Exam alert, oriented x 3, clear to auscultation bilaterally and regular rate & rhythm Airway Mallampati: Class III Dentition: false Pulmonary Sleep Apnea CV/HEM Hypertension Metabolic Hyperlipidemia, Morbid Obesity and Thyroid Disease Anesthetic Plan ASA status: 3 Anesthesia: General and Regional (specify below) Risk of > 500 ml blood loss (7ml/kg in children): No Medications/Allergies Home Medications Medication Instructions Recorded Confirmed Last Taken Type pantoprazole 40 mg tablet,delayed 40 mg PO DAILY 30 days #30 tabs 06/25/21 07/11/24 07/15/24 03:30 Rx release (Protonix) folic acid 1 mg tablet 1 mg PO DAILY #90 tabs 09/25/21 07/11/24 07/15/24 03:30 Rx ondansetron HCl 4 mg tablet 4 mg PO Q8H PRN nausea and 07/09/23 07/11/24 07/15/24 03:30 Rx vomiting 7 days #20 tabs cholecalciferol (vitamin D3) 1,250 1,250 mcg PO DAILY 03/03/24 07/11/24 07/15/24 03:30 History mcg (50,000 unit) capsule citalopram 40 mg tablet 40 mg PO DAILY 03/03/24 07/11/24 07/15/24 03:30 History losartan 50 mg tablet 50 mg PO DAILY 03/03/24 07/11/24 07/14/24 History levothyroxine 50 mcg tablet 50 mcg PO DAILY 04/19/24 07/11/24 07/15/24 03:30 History meloxicam 15 mg tablet 15 mg PO TID PRN Pain 07/11/24 07/11/24 07/15/24 03:30 History ropinirole 1 mg tablet 1 mg PO TID 07/11/24 07/11/24 07/15/24 03:30 History tizanidine 4 mg tablet 4 mg PO TID PRN Muscle Spasm 07/11/24 07/11/24 07/14/24 History hydrocodone 10 mg-acetaminophen 1 tab PO Q6H PRN pain 7 days #28 07/15/24 Unknown Rx 325 mg tablet tabs Allergies Allergy/AdvReac Type Severity Reaction Status Date / Time bupropion [From Wellbutrin] Allergy Unknown unknown Verified 07/04/24 15:14 doxycycline Allergy Unknown unknown Verified 07/04/24 15:14 gabapentin Allergy Unknown unknown Verified 07/04/24 15:14 influenza virus vacc Allergy Unknown unknown Verified 07/04/24 15:14 trivalent, split [From Fluzone] meperidine [From Demerol] Allergy Unknown unknown Verified 07/04/24 15:14 morphine Allergy Unknown unknown Verified 07/04/24 15:14 adhesive tape Allergy ALGY-Rash Verified 07/04/24 15:14 Alpha-Gal Allergy Unknown Verified 07/04/24 15:14 ([id number]-7,3-Gala Current Medications Generic Name Dose Route Start Last Admin Trade Name Freq PRN Reason Stop Dose Admin Sodium Chloride 1,000 mls @ 30 mls/hr 07/15/24 05:45 07/15/24 06:24 Sodium Chloride 0.9% IV 07/16/24 05:44 30 mls/hr .Q24H LUCAS Administration PFSH Anesthesia Medical History Muscle strain of lower extremity Muscle strain, lower leg Knee sprain Gastroenteritis Migraine headache with aura Colon polyp Skin mole Breast cancer screening by mammogram Edema Morbid obesity with BMI of 50.0-59.9, adult Urinary tract infection Morbid obesity with BMI of 45.0-49.9, adult Obesity Essential hypertension Sleep apnea Hypersomnia Yeast dermatitis Bronchitis with acute wheezing Lower respiratory infection DDD (degenerative disc disease), lumbar Vitamin B12 deficiency (non anemic) Decreased GFR Anemia Mixed hyperlipidemia Restless leg Medication management Fatigue Lumbar pain with radiation down left leg Left hip pain Vitamin D deficiency Pseudofolliculitis barbae Thyroid nodule Morbid obesity Hypothyroidism Hypertension, benign Francia's deformity of right heel Goiter Fibromyalgia Depression with anxiety Achilles tendinosis of right lower extremity Family History Denies family history of Diabetes CAD (coronary artery disease) Clotting disorder Dementia Hyperlipidemia Psychiatric illness Chronic kidney disease (CKD) Suicide Anesthesia complication Bleeding disorder Family history of premature coronary artery disease Lung disease Cancer Hypertension Stroke Social History Smoking and tobacco/nicotine status: former use of tobacco/nicotine Alcohol intake: never Substance/Drug Use: never Current occupational status: employed Current occupation: Nurse Data Anesthesia Cardiac Studies: No Data to Display
--- NOTE | 2024-07-15 07:02 | ANES.PROC ---
Anesthesia Procedures Procedure/Date: 07/15/24 Nerve Block ^: Nerve Block 1: Main Anesthesia: general anesthesia Time Out Performed: Yes Consent: requested by attending/covering physician, from patient, from other, risks and benefits reviewed and patient agrees to proceed Nerve block location: popliteal (L) Anesthesia monitors applied: pulse oximetry, EKG, BP cuff and oxygen Nerve block position: supine Anesthetic Used: ropivicaine 0.5% (30 ml) and with decadron (4 mg) Ultrasound used to: recognize landmarks Nerve Stimulator Used?: No Interscalene/Femoral BLK: 4 stimuplex 21 g needle used for position and inplane approach, visualize local anesthetic spread and no vascular puncture identified Injection: neg aspiration of heme Patient Tolerated Procedure: well Complications: none
[2024-07-15] MEDS: ceFAZolin 3,000 MG in sodium chloride 0.9% (plus) 100 ML 200 MG IV (07:04)
[2024-07-15] MEDS: fentaNYL 50 mcg/mL INJ 2mL IVP (08:38)
[2024-07-15] MEDS: HYDROcodone-acetaminophen 10-325 mg Tablet 1 TAB PO (09:11)
--- NOTE | 2024-07-15 09:30 | ANE.PACU2 ---
Inpatient post-anesthesia follow up: Airway intact: Yes Vital signs: Temperature 97.0 F Pulse Rate 57 Respiratory Rate 18 Blood Pressure 137/84 Pulse Oximetry 94 Oxygen Delivery Me thod Room Air Oxygen Flow Rate Fraction of Inspir ed Oxygen Hydration adequate: Yes Nausea and vomiting: No Pain level: 5 Mental status: Baseline
== END 2024-07-15 09:32 | disposition home or self-care (01) ==
PROVIDERS: Visit Provider Podiatrist Foot & Ankle Surgery
PROC: (CPT 27650; principal; 2024-07-15 07:00)
PROC: (CPT 27654; 2024-07-15 07:00)
DX: M67.874 Other specified disorders of tendon, left ankle and foot (principal); M92.62 Juvenile osteochondrosis of tarsus, left ankle; G47.30 Sleep apnea, unspecified; I10 Essential (primary) hypertension; E66.01 Morbid (severe) obesity due to excess calories; Z68.41 Body mass index [BMI] 40.0-44.9, adult; E78.2 Mixed hyperlipidemia; E03.9 Hypothyroidism, unspecified; M79.7 Fibromyalgia; Z87.891 Personal history of nicotine dependence
CPT/HCPCS: 27654; 28118; 76000; C1713; J0690; J1100; J1885; J2405; J2704; J2795; J3010; J3490; J7030

== ENCOUNTER 2024-08-30 10:07 | Outpatient (CLI) | payer BC, SELFPAY | END 2024-08-30 10:08 | disposition home or self-care (01) | LOC: SPT 10:08 | PROVIDERS: Visit Provider Podiatrist Foot & Ankle Surgery | DX: Z47.89 Encounter for other orthopedic aftercare (principal); M92.62 Juvenile osteochondrosis of tarsus, left ankle | CPT/HCPCS: L4361 ==

== ENCOUNTER 2024-09-17 06:30 | Outpatient (RCR) | payer BC, SELFPAY | END 2024-10-17 23:59 | disposition home or self-care (01) | LOC: WPT 06:30 | PROVIDERS: Visit Provider Podiatrist Foot & Ankle Surgery | DX: Z98.890 Other specified postprocedural states (principal) | CPT/HCPCS: 97110; 97112; 97161; 97530 ==

== ENCOUNTER 2024-10-18 05:00 | Outpatient (RCR) | payer BC, SELFPAY | END 2024-11-16 23:59 | disposition home or self-care (01) | LOC: WPT 05:00 | PROVIDERS: Visit Provider Podiatrist Foot & Ankle Surgery | DX: Z98.890 Other specified postprocedural states (principal) | CPT/HCPCS: 97110; 97112; 97530 ==

== ENCOUNTER 2025-01-17 05:00 | Outpatient (RCR) | payer OTHER, SELFPAY | END 2025-02-16 23:59 | disposition home or self-care (01) | LOC: WPT 05:00 | PROVIDERS: PCP Nurse Practitioner Family; Visit Provider Nurse Practitioner Family | DX: M50.30 Other cervical disc degeneration, unspecified cervical region (principal); M54.12 Radiculopathy, cervical region; R20.0 Anesthesia of skin; R20.2 Paresthesia of skin | CPT/HCPCS: 97110; 97112; 97140; 97161; 97530 ==

== ENCOUNTER → 2025-01-19 14:46 | Outpatient (BNVA) | payer SELFPAY | PROVIDERS: PCP Nurse Practitioner Family; Visit Provider Nurse Practitioner Family | DX: M54.2 Cervicalgia (principal) | CPT/HCPCS: 72052 ==

== ENCOUNTER → 2025-01-24 14:22 | Outpatient (BNVA) | payer OTHER, SELFPAY | PROVIDERS: PCP Nurse Practitioner Family; Visit Provider Nurse Practitioner Family | DX: E03.9 Hypothyroidism, unspecified (principal) | CPT/HCPCS: 83516; 84439; 86376 ==

== ENCOUNTER 2025-02-09 06:55 | Outpatient (CLI) | payer OTHER, SELFPAY ==
--- NOTE | 2025-02-09 07:15 | US_ITS ---
WS: [id number] THYROID ULTRASOUND HISTORY: E04.1 - Nontoxic single thyroid nodule COMPARISON: 02/27/2020 Right lobe: 1.6 cm x 1.5 cm x 3.3 cm (w x ap x l). Volume: 3.8 cm3. Normal sized gland with mild diffuse heterogeneity and nodularity. Largest nodule in the mid gland measures 5 x 6 x 8 mm. This is a hypoechoic nodule with no echogenic foci. No increase in size since the prior study. The remaining nodules that were described or not identified as discrete structures. No increased vascularity. Left lobe: 1.5 cm x 1.3 cm x 3.6 cm (w x ap x l). Volume: 3.4 cm3. Normal size and echotexture. No significant or dominant nodules are present. Isthmus: 0.2 cm. US/US thyroid [id number] IMPRESSION: TI-RADS 2; no suspicious nodules identified on today's ultrasound evaluation. T I-RADS does not recommend additional imaging follow-up at this time.
== END 2025-02-09 06:56 | disposition home or self-care (01) ==
LOC: RAD 06:55
PROVIDERS: PCP Nurse Practitioner Family; Visit Provider Nurse Practitioner Family
DX: E04.2 Nontoxic multinodular goiter (principal); E03.9 Hypothyroidism, unspecified
CPT/HCPCS: 76536

== ENCOUNTER 2025-02-17 05:00 | Outpatient (RCR) | payer OTHER, SELFPAY | END 2025-03-19 23:59 | disposition home or self-care (01) | LOC: WPT 05:00 | PROVIDERS: PCP Nurse Practitioner Family; Visit Provider Nurse Practitioner Family | DX: M50.30 Other cervical disc degeneration, unspecified cervical region (principal); M54.12 Radiculopathy, cervical region; R20.0 Anesthesia of skin; R20.2 Paresthesia of skin | CPT/HCPCS: 97110; 97112; 97140; 97530 ==

== ENCOUNTER → 2025-03-09 14:30 | Outpatient (BNVA) | payer OTHER, SELFPAY | PROVIDERS: PCP Nurse Practitioner Family; Visit Provider Nurse Practitioner Family | DX: L40.9 Psoriasis, unspecified (principal); L40.50 Arthropathic psoriasis, unspecified | CPT/HCPCS: 86038 ==

== ENCOUNTER 2025-03-15 09:19 | Outpatient (CLI) | payer OTHER, SELFPAY ==
[2025-03-15 10:30] LABS: Hematocrit 33.9 % (36-47); Hemoglobin 10.20 g/dL (11.27-16.99); Mean Corpuscular HGB Conc 30.1 g/dL (30-55); Mean Corpuscular Hemoglobin 27.5 pg (27-33); Mean Corpuscular Volume 91.4 fl (85-98); Nucleated Red Blood Cells % 0 %; Platelet Count 145 10^3/cmm (157-399); Red Blood Count 3.71 10^6/uL (3.85-5.65); White Blood Count 5.63 10^3/uL (3.29-11.43)
[2025-03-15 10:50] LABS: Alanine Aminotransferase 33 U/L (0-33); Albumin Level 3.8 g/dL (3.5-5.2); Alkaline Phosphatase 70 U/L (35-105); Anion Gap 7.3 (5-19); Aspartate Amino Transferase 38 U/L (0-32); Blood Urea Nitrogen 14 mg/dL (6-20); Calcium 8.8 mg/dL (8.5-10.5); Carbon Dioxide 31 mmol/L (22-29); Chloride 107 mmol/L (98-107); Cholesterol 147 mg/dL (0-200); Globulin 2.8 g/dL (1.3-4.6); Glucose 115 mg/dL (65-115); HDL Cholesterol 33 mg/dL (60-100); Osmolality Calculated 293 mOsm/kg (285-295); Potassium 4.3 mmol/L (3.5-5.1); Sodium 141 mmol/L (136-145); Total Protein 6.6 g/dL (6.6-8.7); Triglycerides 130 mg/dL (0-150)
[2025-03-15 11:22] LABS: Hepatitis B Surface Antigen Non-Reactive (Nonreactive)
== END 2025-03-15 09:20 | disposition home or self-care (01) ==
PROVIDERS: PCP Nurse Practitioner Family; Visit Provider Dermatology
DX: L40.0 Psoriasis vulgaris (principal)
CPT/HCPCS: 36415; 80048; 80061; 80076; 85025; 86480; 86704; 86706; 86803; 87340

== ENCOUNTER → 2025-04-07 08:27 | Outpatient (BNVA) | payer OTHER, SELFPAY | PROVIDERS: PCP Nurse Practitioner Family; Visit Provider Nurse Practitioner Family | DX: N95.1 Menopausal and female climacteric states (principal) | CPT/HCPCS: 82040; 82670; 83001; 83002; 84144; 84146; 84270; 84403 ==

== ENCOUNTER → 2025-05-08 13:31 | Outpatient (BNVA) | payer OTHER, SELFPAY | PROVIDERS: PCP Nurse Practitioner Family; Visit Provider Nurse Practitioner Family | DX: M25.471 Effusion, right ankle (principal); M25.472 Effusion, left ankle; D69.6 Thrombocytopenia, unspecified; I10 Essential (primary) hypertension; D51.9 Vitamin B12 deficiency anemia, unspecified | CPT/HCPCS: 80053; 82728; 83550; 83880; 85025 ==

== ENCOUNTER → 2025-06-06 08:30 | Outpatient (BNVA) | payer OTHER, SELFPAY | PROVIDERS: PCP Nurse Practitioner Family; Visit Provider Nurse Practitioner Family | DX: R29.818 Other symptoms and signs involving the nervous system (principal) | CPT/HCPCS: 82607; 82746; 86160; 86618; 86666; 86668; 86757 ==

== ENCOUNTER 2025-06-27 07:08 | Outpatient (CLI) | payer OTHER, SELFPAY ==
--- NOTE | 2025-06-27 07:15 | MR_ITS ---
WS: [id number] MRI HEAD WITH CONTRAST TECHNIQUE: Sagittal T1, T2 axial, T2 axial FLAIR, axial susceptibility weighted imaging, axial diffusion weighted images, and coronal T2 images were obtained. Pre and post-T1 axial and post T1 coronal images. ADC and FSPGR images. CLINICAL INFORMATION: G35.D - Multiple sclerosis, unspecified COMPARISON: None. FINDINGS: No evidence of restricted diffusion to suggest acute ischemia. A few patchy foci of T2 hyperintensity in the periventricular and pericallosal supratentorial white matter. This can be seen with demyelinating disease in the appropriate clinical setting given clinical history. No enhancing lesion to indicate active disease. Mild T1 hypointense lesion load. No significant parenchymal volume loss. No significant atrophy of the corpus callosum. Normal posterior fossa. Normal vascular flow voids at the skull base. No extra- axial fluid collections. Mild Mucosal thickening in the paranasal sinuses. Mucosal thickening in the mastoid tips. No hemosiderin on susceptibility- weighted images. Normal optic chiasm and pituitary infundibulum. MR/MR head wo/w con [id number] IMPRESSION: 1. No evidence of restricted diffusion to suggest acute ischemia. 2. Mild patchy supratentorial white matter changes nonspecific in a patient of this age but can be seen with demyelinating disease in the appropriate clinica l setting given clinical history. 3. No enhancing lesions to indicate active disease. 4. No significant parenchymal volume loss. 5. Mild T1 hypointense lesion load. 6. No hemosiderin on the susceptibly weighted images. 7. No other acute findings.
== END 2025-06-27 07:09 | disposition home or self-care (01) ==
PROVIDERS: PCP Nurse Practitioner Family; Visit Provider Nurse Practitioner Family
DX: G35.D Multiple sclerosis, unspecified (principal); G93.89 Other specified disorders of brain
CPT/HCPCS: 70553